=== PATIENT | female | born 1930 | race Caucasian/White ===

== ENCOUNTER 2017-01-24 09:07 | Observation (INO) | payer OTHER ==
[~2017-01-24] VITALS: Ht 162.6 cm; Wt 68.0 kg
--- NOTE | 2017-01-24 09:15 | NUR ---
86 YO FEMALE BIBA FROM [facility]. PT STATES SHE WAS CONSTIPATED FOR APPROX 4 DAYS AND HER LAST 2 BOWEL MOVMENTS HAVE BEEN "HARD ROUND BALLS" STATES SHE NOTICIED BRIGHT RED BLOOD IN TOILET AFTER BM'S. PT DENIES PAIN.
[2017-01-24 09:48] LABS: ABSOLUTE BASOPHIL COUNT 0 /CUMM (0.0-0.2); ABSOLUTE EOSINOPHIL COUNT 0.1 /CUMM (0.0-0.7); ABSOLUTE GRANULOCYTE CT 5.1 /CUMM (1.4-6.5); ABSOLUTE LYMPH COUNT 1.5 /CUMM (1.2-3.4); ABSOLUTE MONOCYTE COUNT 0.8 /CUMM (0.10-0.60); BASOPHIL % 0.6 % (0.0-2.0); EOSINOPHIL % 1.7 % (0-5); GRANULOCYTE % 67.1 % (42.2-75.2); HEMATOCRIT 42.2 % (37-47); MEAN CORPUSCULAR HGB 29.8 PG (27.0-31.0); MEAN CORPUSCULAR HGB CONC 32.8 G/DL (33.0-37.0); MEAN CORPUSCULAR VOLUME 90.9 FL (81.0-99.0); MEAN PLATELET VOLUME 8.4 FL (7.4-10.4); PLATELET COUNT 280 /CUMM (130-400); RBC DISTRIBUTION WIDTH 12.8 % (11.5-14.5); RED BLOOD CELL CT 4.65 /CUMM (4.20-5.40); WHITE BLOOD CELL COUNT 7.6 /CUMM (4.8-10.8)
--- NOTE | 2017-01-24 09:59 | NUR ---
MD TO BEDSIDE FOR EVAL
--- NOTE | 2017-01-24 10:15 | ED GI/GU/ABDOMINAL COMPLAINT ---
History of Present Illness General Chief Complaint: General Adult Stated Complaint: BRIGHT RED BLOOD X2 WITH BOWEL MOVEMENT Source: patient, old records, EMS Exam Limitations: no limitations Vital Signs & Intake/Output Vital Signs & Intake/Output Vital Signs Date Time Temp Pulse Resp B/P B/P Pulse O2 O2 Flow FiO2 Mean Ox Delivery Rate 01/25 2204 85 125/70 01/24 2200 98.4 85 18 125/70 97 Room Air 01/24 1943 94 145/90 01/24 1638 63 21 172/80 93 Room Air 01/24 1630 Room Air 01/24 1529 98.5 92 18 184/95 96 01/24 1231 98.6 76 18 180/78 98 Room Air 01/24 0913 96.9 89 18 179/98 95 Room Air ED Intake and Output 01/25 0000 01/24 1200 Intake Total 250 Output Total 100 Balance 150 Intake, Oral 250 Output, Urine 100 Patient 150 lb 145 lb Weight Weight Reported by Patient Measurement Method Allergies Coded Allergies: No Known Allergies (01/24/17) Reconcile Medications Acetaminophen (Pain Reliever) 500 MG CAPSULE 1 TAB PO Q6 PRN PAIN (Reported) Allopurinol 100 MG TABLET 1 TAB PO DAILY GOUT (Reported) Aspirin (Ecotrin*) 81 MG TABLET.DR 1 TAB PO DAILY HEART (Reported) Diltiazem HCl (Diltiazem 24HR ER) 240 MG CAP.ER.24H 1 CAP PO DAILY AFIB/ HYPERTENSION (Reported) Docusate Sodium (Colace) 100 MG CAPSULE 1 CAP PO BID CONSTIPATION (Reported) Escitalopram Oxalate (Lexapro) 5 MG TABLET 1 TAB PO DAILY DEPRESSION ( Reported) Furosemide 20 MG TABLET 1 TAB PO DAILY LOWER EXTREMITY SWELLING (Reported) Levothyroxine Sodium 100 MCG TABLET 1 TAB PO DAILY HYPOTHYROIDISM (Reported) Lisinopril 20 MG TABLET 1 TAB PO BID HYPERTENSION (Reported) Magnesium Hydroxide (Milk Of Magnesia) 400 MG/5 ML ORAL.SUSP 5 ML PO Q6 PRN CONSTIPATION (Reported) Metoprolol Succinate 25 MG TAB 1 TAB PO DAILY AFIB/HTN (Reported) Potassium Chloride (Klor-Con 10) 10 MEQ TABLET.ER 1 TAB PO DAILY HYPOKALEMIA (Reported) Tramadol HCl 50 MG TABLET 1 TAB PO TIDPRN PAIN (Reported) Warfarin Sodium (Coumadin) 2.5 MG TABLET 1 TAB PO DAILY AFIB (Reported) Triage Note: 86 YO FEMALE BIBA FROM [facility]. PT STATES SHE WAS CONSTIPATED FOR APPROX 4 DAYS AND HER LAST 2 BOWEL MOVMENTS HAVE BEEN "HARD ROUND BALLS" STATES SHE NOTICIED BRIGHT RED BLOOD IN TOILET AFTER BM'S. PT DENIES PAIN. Triage Nurses Notes Reviewed? yes ? n Is pt currently ? No HPI: Patient presents for evaluation of intermittent bright red rectal bleeding that began abruptly about 4 days ago. Patient states that her symptoms became worse today. She has had 2 bloody bowel movements today, her first episode being primarily reddish and pinkish blood. The second episode consisted of a formed bowel movement with red and pink blood (more blood than stool). Past History Travel History Traveled to [place] past 21 day No Medical History Any Pertinent Medical History? see below for history Cardiovascular: hypertension Musculoskeletal: ARTHIRITS Surgical History Surgical History: non-contributory Psychosocial History What is your primary language Malay Tobacco Use: Never used Family History Hx Contributory? No Review of Systems Review of Systems Constitutional: Reports: no symptoms. EENTM: Reports: no symptoms. Respiratory: Reports: no symptoms. Cardiovascular: Reports: no symptoms. GI: Reports: see HPI. Genitourinary: Reports: no symptoms. Musculoskeletal: Reports: no symptoms. Skin: Reports: no symptoms. Neurological/Psychological: Reports: no symptoms. Hematologic/Endocrine: Reports: no symptoms. Immunologic/Allergic: Reports: no symptoms. All Other Systems: Reviewed and Negative Physical Exam Physical Exam Gastrointestinal: SEE BELOW Comments: Gen.: Well-nourished, well-developed, no acute respiratory distress. Head: Normocephalic, atraumatic. Eyes: Normal inspection bilaterally Ears: Normal inspection bilaterally Nose: Normal inspection Throat/mouth : Moist mucosa Neck: Supple, full range of motion, no goiter Heart: Regular rate and rhythm, no murmurs rubs or gallops Lungs: Clear to auscultation bilaterally with normal air entry Chest: Nontender Back: Normal range of motion Abdomen: Soft, nontender, nondistended, normal bowel sounds Rectal: No active hemorrhoids or anal fissures, pinkish stool residue strongly heme positive Extremities: Normal range of motion grossly, equal radial pulses, no cyanosis clubbing or edema Neurologic: Cranial nerves grossly intact, speech is clear Skin: warm and dry with good color Psychiatric: Calm, cooperative, no apparent delusions or hallucinations Core Measures ACS in differential dx? No Severe Sepsis Present: No Septic Shock Present: No Progress Differential Diagnosis: lower gi bleed, uppper gi bleed, diverticular bleed, polyp, cancer, colitis Plan of Care: Orders Procedure Date/time Status PROTHROMBIN TIME 01/25 0600 Active CBC WITHOUT DIFFERENTIAL 01/25 0600 Active Clear Liquid Diet 01/24 D Active Vital Signs 01/24 1635 Active Teach/Educate 01/24 1635 Active Pain Treatment and Response 01/24 1635 Active Nutritional Intake, Monitor 01/24 1635 Active Isolation 01/24 1635 Active Intake & Output 01/24 1635 Active Patient Care Conference 01/24 1635 Active Activity/Ambulation 01/24 1635 Active Misc Message 01/[address] in observation 01/24 1504 Active URINALYSIS 01/24 1501 Active Pathway - chart 01/24 1451 Active House Staff 01/24 1451 Active Code Status 01/24 1451 Active Patient Data 01/24 1416 Active Intake & Output 01/24 1232 Active Saline Lock 01/24 1014 Active Add-on Test (ER Only) 01/24 1014 Active PROTHROMBIN TIME 01/24 0925 Complete TYPE & SCREEN (NOT X-MATCH) 01/24 0925 Complete COMPREHENSIVE METABOLIC PANEL 01/24 0916 Complete CBC WITHOUT DIFFERENTIAL 01/24 0916 Complete VTE Mechanical Prophylaxis 01/24 UNK Active MISSING MEDICATION FORM 01/24 UNK Active Current Medications Sig/Tatyana Start time Last Medication Dose Stop Time Status Admin Allopurinol 100 MG DAILY 01/25 1000 CAN (Zyloprim) Levothyroxine Sodium 0.1 MG DAILY AC 01/25 0700 AC 01/25 (Synthroid) 0715 Docusate Sodium 100 MG BID 01/24 2200 AC (Colace) Lisinopril 20 MG BID 01/24 2200 AC 01/24 (Prinivil) 2204 Acetaminophen 500 MG Q6P PRN 01/24 1700 AC 01/25 (Tylenol) 0716 Magnesium Hydroxide 5 ML Q6 PRN 01/24 1700 AC (Milk Of Magnesia) Tramadol HCl 50 MG TIDPRN PRN 01/24 1700 AC 01/25 (Ultram) 0024 Allopurinol 100 MG DAILY 01/24 1649 AC 01/24 (Zyloprim) 1943 Metoprolol Succinate 25 MG DAILY 01/25 1648 AC 01/24 (Toprol XL) 1942 Potassium Chloride 10 MEQ DAILY 01/25 1648 AC 01/24 (K-Dur) 1942 Aspirin Buffered 81 MG DAILY 01/24 1647 AC 01/24 (Ecotrin) 1942 Diltiazem HCl 240 MG DAILY 01/24 1647 AC 01/24 (Cardizem CD) 1941 Escitalopram Oxalate 5 MG DAILY 01/24 1647 AC 01/24 (Lexapro) 1942 Furosemide 20 MG DAILY 01/24 1647 AC 01/24 (Lasix) 183 Acetaminophen 500 MG Q6P PRN 01/24 163 CAN (Tylenol) Laboratory Tests 01/24/17 0925: Anion Gap 12, Estimated GFR > 60, BUN/Creatinine Ratio 21.7, Glucose 94, Calcium 9.3, Total Bilirubin 0.8, AST 26, ALT 34, Alkaline Phosphatase 109, Total Protein 6.6, Albumin 4.0, Globulin 2.6, Albumin/Globulin Ratio 1.5, PT 27.1 H, INR 2.61 H, CBC w Diff NO MAN DIFF REQ, RBC 4.65, MCV 90.9, MCH 29.8, RDW 12.8, MPV 8.4, Gran % 67.1, Lymphocytes % 19.6 L, Monocytes % 11.0 H, Eosinophils % 1.7, Basophils % 0.6, Absolute Granulocytes 5.1, Absolute Lymphocytes 1.5, Absolute Monocytes 0.8 H, Absolute Eosinophils 0.1, Absolute Basophils 0, PUBS MCHC 32.8 L Initial ED EKG: none Comments: 01/24/2017 1:02:20 PM I have updated Jaqui on her test results. She has no specific complaint at this time. She has had no further episodes of rectal bleeding here in the emergency department. GI paged. 01/24/2017 1:14:38 PM patient's case discussed with Dr. Zamudio including her current clinical condition and labs and CAT scan report. Although the patient's hematocrit and hemoglobin and vital signs are stable, the patient is likely still actively bleeding particularly given her use of warfarin. In addition the patient does not have an active primary care physician at this time having moved [facility] 4 months ago. He feels that the patient should be considered for an observation stay to assess for stability and for any change in hematocrit and hemoglobin or vital signs. He also recommends discontinuing the warfarin and considering vitamin K reversal. He feels the patient will require a colonoscopy when properly prepped. 01/24/2017 2:19:01 PM patient's case discussed with Dr. Orozco. Departure Departure Disposition: STILL A PATIENT Condition: Stable Clinical Impression Primary Impression: Lower GI bleed Secondary Impressions: Warfarin-induced coagulopathy Referrals: WILLIAM SALAS,LUIS Sapp (PCP/Family) Departure Forms: Customer Survey General Discharge Information Observation Note Spoke With: ADITI AMEZQUITA MD Physician Advisor Notified: BRADFORD SALAS,MARISABEL [address] Patient In: Non-ED OBS Care Area Rationale for Observation: My rational for observation is as follows patient is a poor historian secondary to poor memory. She is also anticoagulated placing her at high risk of ongoing bleeding. The source of this patient's bleeding is unclear at this point although clinically it points to a lower GI bleeding episode. This could be secondary to a bleeding polyp, colon cancer or an AV malformation. Her anticoagulation places her at high risk of hemorrhage, a precipitous drop in H&H , chest pain, shortness of breath and fatal hemorrhage. Given her poor memory, her age, elevated INR and clinical presentation I do not feel she is a good candidate for outpatient management. I feel she now requires hospitalization for serial blood counts, discontinuation of her warfarin and monitoring of her INR and GI consultation. If hematocrit and hemoglobin drop then urgent or emergent colonoscopy should be considered along with rapid reversal of this patient's warfarin with vitamin K and fresh frozen plasma.
--- NOTE | 2017-01-24 11:02 | NUR ---
PT AMBULTING TO BATHROOM WITH WALKER. PT REQUESTING SOMETHING TO EAT, PT AWRE SHE IS GOING FOR A CT SCAN AND NEEDS TO WAIT UNTIL RESTULS ARE BACK UNTIL SHE CAN EAT.
[2017-01-24 11:03] LABS: PT 27.1 SEC (9.4-12.5)
--- NOTE | 2017-01-24 11:21 | NUR ---
PT TO CAT.
--- NOTE | 2017-01-24 11:40 | NUR ---
PT BACK FROM CT SCAN. SITTING ON STRETCHER TALKING WITH FAMILY ON THE PHONE AT THIS TIME. PT REMAINS PAIN FREE.
--- NOTE | 2017-01-24 12:14 | CT SCAN REPORT ---
EXAMINATION: CT ABDOMEN AND PELVIS WITH CONTRAST CLINICAL INFORMATION: Bloody diarrhea. COMPARISON: None TECHNIQUE: Multidetector volumetric imaging was performed of the abdomen and pelvis before and after the IV administration of 95 mL of of Optiray 320 intravenous contrast. Sagittal and coronal reformatted images were obtained on the technologist's workstation. DLP: 326 mGy-cm FINDINGS: LUNG BASES: Mild atelectasis in dependent aspect of each lower lobe, there are lobe and inferior lingula. 0.3 cm calcified nodule within the right lower lobe. Mitral valve annulus is calcified and there is multichamber cardiac enlargement. Coronary arteries are calcified. Pulmonary artery trunk is 4 cm diameter; this pulmonary artery enlargement suggests presence of pulmonary arterial hypertension. LIVER, GALLBLADDER, AND BILIARY TREE: A 3 x 2.2 x 2.6 cm smoothly marginated mass along the capsular surface of hepatic segment IVb has attenuation of 65 Hounsfield units on these contrast-enhanced images. Gallbladder is moderately distended and has normal wall thickness. No radiopaque calculi. No intrahepatic or extrahepatic bile duct dilatation. PANCREAS: Unremarkable. SPLEEN: Unremarkable. ADRENAL GLANDS: Unremarkable. KIDNEYS AND URETERS: The kidneys enhance symmetrically. No nephrolithiasis or hydroureteronephrosis. Multiple bilateral renal cortical cysts are present. A 1.5 x 1.2 cm exophytic lesion at the posterior left upper pole has minimal calcification along its posterior wall and has central attenuation of 25-30 HU; this likely represents a hyperdense cyst. A prominent peripelvic cyst of the upper pole measures up to 4.9 cm maximum dimension. There are several small bilateral hypodense cortical lesions that are too small to definitively characterize (but are likely cysts). The ureters are normal in caliber. BLADDER: Unremarkable. GASTROINTESTINAL TRACT: Stomach is underdistended. Small and large bowel are normal in caliber. The appendix is normal. There is pancolonic diverticulosis. The wall thickening of the sigmoid colon is likely secondary to chronic diverticular disease. There is no overt pericolonic fat stranding to suggest acute diverticulitis. No abdominal abscess. No pneumoperitoneum. ABDOMINAL WALL: The rectus abdominis muscles of the anterior abdominal wall are atrophied. There is mild protrusion of fat into each inguinal canal. No acute findings within the abdominal wall. LYMPH NODES: No pathologic sized lymph nodes within the abdomen or pelvis. VASCULAR: There is extensive atherosclerotic calcification of the aorta and iliac vessels without aneurysm. PELVIC VISCERA: The uterus is surgically absent. No adnexal masses or pelvic free fluid. OSSEOUS STRUCTURES: There is extensive, severe degenerative arthropathy of the thoracolumbar spine and rotatory dextroscoliosis of the lumbar spine. The compressed T11 vertebral body exhibits approximately 50% central height reduction and there is generalized sclerosis of the deformed vertebra. A subacute fracture of T11 is suspected, but there are no comparison radiographs or CT exams to determine chronicity. There is 0.8 cm of grade 2 anterolisthesis of L4 on L5. Tarlov cyst is present at the S2 level. Mild osteoarthrosis of the hips. IMPRESSION: 1. Pancolonic diverticulosis and diverticular disease of the sigmoid colon. There is no overt diverticulitis. 2. 3 x 2.2 x 2.6 cm mass along the capsular surface of hepatic segment 4B. This could be further assessed with ultrasound to confirm presence of a solid lesion. Then, if deemed clinically appropriate, a multiphase contrast-enhanced CT or MR examination of the liver could be performed. 3. Multiple bilateral renal cysts, including a prominent peripelvic cyst in the left upper pole. Some of the hypodense renal cortical lesions are too small to characterize but are likely cysts. 4. Extensive atherosclerotic disease of the aorta and iliac vessels without aneurysm. Cardiomegaly and coronary artery atherosclerotic disease, as well. Pulmonary artery trunk is 4 cm diameter, suggestive of pulmonary arterial hypertension. 5. The T11 vertebral body compression fracture is probably subacute.
--- NOTE | 2017-01-24 12:17 | NUR ---
PT AMBULATING TO AND FROM BATHROOM WITH WALKER. PT AWARE STILL WAITING ON RESULTS AT THIS TIME. OFFERS NO COMPLAINTS
--- NOTE | 2017-01-24 13:10 | NUR ---
MD TO BEDSIDE TO EXPLAIN RESULTS AND PLAN OF CARE
--- NOTE | 2017-01-24 15:15 | NUR ---
HOUSE STAFF AT BEDSIDE
--- NOTE | 2017-01-24 15:30 | History & Physical ---
AIMEE BACA MD 01/24/17 1530: General Information and HPI History of Present Illness: 86 year old woman with multiple medical problems significant for atrial fibrillation on coumadin seen for evaluation of multiple episodes of bright red stool at home and urinary frequency/urgency/incontinence. Patient was in her normal state of health until three days ago when she developed severe constipation with associated urinary frequency/incontinence without any burning/pain/discomfort. She denies a history of incontinence. In this time she has had decreased oral intake. She reports passing multiple bowel movements consisting of small hard stools and associated bright red blood. When he symptoms weren't resolving she decided to call 911 to seek further evaluation. She reports a similar episode to this approximately 8 years ago and does not recall the details of this event. Presently she states that she "feels fine" and denies any further episodes of bright red blood per rectum. She does admit to persistent urinary incontinence as reports having an episode in the ED "all over the floor". She is demanding to eat and states she has not "eaten in days". Patient is originally from [place], [place] and moved to [facility] in order to be closer to her children. She states it was too hard for them to keep flying down to [place] because she kept getting sick. She provided contact information for her son and [id number] , home , whom offered collateral information for patient and state patient sees Dr. Thomas as a PCP and lives at [facility] assisted living where most of her ADLS/IADLS are done with aid of staff. Collateral information was unavailable from [facility] , no W10 was available. She denies any blurred/double vision, lightheadedness/dizziness, headache, fever , chills, chest pain, palpitations, shortness of breath, cough, nausea, vomiting , diarrhea, numbness/tingling. PMHx - hypertension, hyperlipidemia, hypothyroidism, gout, paroxysmal atrial fibrillation on coumadin, DJD, depression, osteoarthritis Social History - denies tobacco use, drinks 1-2 drinks per day of wine or cosmos , unable to complete ADLs/IADLs independent, utilizing a rolling walker for ambulation Allergies/Medications Allergies: Coded Allergies: No Known Allergies (01/24/17) Past History Travel History Traveled to [place] past 21 day No Medical History EENT: NONE Cardiovascular: AFIB, chronic venous insuff, hypertension, hyperlipidemia Respiratory: NONE Gastrointestinal: lower GI bleed Hepatic: NONE Renal: NONE Musculoskeletal: degen joint disease, falls, gout, osteoarthritis Psychiatric: depression Endocrine: hypothyroidism Surgical History Surgical History: unobtainable Past Family/Social History Family History Relations & Conditions if any FATHER, , Age 50-60; Cause: Colon cancer. FH: colon cancer Psychosocial History Where do you live? Assisted Living Who Do You Live With? self Services at Home: Home Health Aide, Nursing Primary Language: Serbian Smoking Status: Never Smoked ETOH Use: heavy use Illicit Drug Use: denies illicit drug use Functional Ability ADLs Needs Assist: dressing, eating, toileting, bathing. Ambulation: walker IADLs Independent: telephone. Needs Assist: shopping, housework, finances, food prep, transportation, medication admin. Review of Systems Review of Systems Constitutional: Reports: see HPI. Exam & Diagnostic Data Last 24 Hrs of Vital Signs/I&O Vital Signs Date Time Temp Pulse Resp B/P B/P Pulse O2 O2 Flow FiO2 Mean Ox Delivery Rate 01/24 1638 63 21 172/80 93 Room Air 01/24 1630 Room Air 01/24 1529 98.5 92 18 184/95 96 01/24 1231 98.6 76 18 180/78 98 Room Air 01/24 0913 96.9 89 18 179/98 95 Room Air Intake & Output 01/24 1600 01/24 0800 01/24 0000 Intake Total Output Total Balance Patient 65.771 kg Weight Weight Reported by Patient Measurement Method Physical Exam General Appearance Alert, Cooperative, No Acute Distress Skin No Rashes, No Breakdown, No Significant Lesion HEENT Atraumatic, EOMI, Mucous Membr. moist/pink Neck Supple Cardiovascular Normal S1, Normal S2, No Murmurs Lungs Clear to Auscultation, Normal Air Movement Abdomen Normal Bowel Sounds, Soft, No Tenderness, No Hepatospenomegaly, No Masses Neurological Normal Speech, Normal Tone, Sensation Intact, Cranial Nerves 3-12 NL Extremities No Clubbing, No Cyanosis, No Edema, Normal Pulses, mild bilateral lower extremity tenderness, 1+ nonpitting edema Vascular Normal Pulses, Pulses Symmetrical Rectal Brown, bloody grossly guaic positive stools Last 24 Hrs of Labs/Garrick: Laboratory Tests 01/24/17 0925: Anion Gap 12, Estimated GFR > 60, BUN/Creatinine Ratio 21.7, Glucose 94, Calcium 9.3, Total Bilirubin 0.8, AST 26, ALT 34, Alkaline Phosphatase 109, Total Protein 6.6, Albumin 4.0, Globulin 2.6, Albumin/Globulin Ratio 1.5, PT 27.1 H, INR 2.61 H, CBC w Diff NO MAN DIFF REQ, RBC 4.65, MCV 90.9, MCH 29.8, RDW 12.8, MPV 8.4, Gran % 67.1, Lymphocytes % 19.6 L, Monocytes % 11.0 H, Eosinophils % 1.7, Basophils % 0.6, Absolute Granulocytes 5.1, Absolute Lymphocytes 1.5, Absolute Monocytes 0.8 H, Absolute Eosinophils 0.1, Absolute Basophils 0, PUBS MCHC 32.8 L Diagnostic Data Other Results EXAM TYPE: CAT - CT ABD & PELVIS W IV CONTRAST IMPRESSION: 1. Pancolonic diverticulosis and diverticular disease of the sigmoid colon. There is no overt diverticulitis. 2. 3 x 2.2 x 2.6 cm mass along the capsular surface of hepatic segment 4B. This could be further assessed with ultrasound to confirm presence of a solid lesion. Then, if deemed clinically appropriate, a multiphase contrast-enhanced CT or MR examination of the liver could be performed. 3. Multiple bilateral renal cysts, including a prominent peripelvic cyst in the left upper pole. Some of the hypodense renal cortical lesions are too small to characterize but are likely cysts. 4. Extensive atherosclerotic disease of the aorta and iliac vessels without aneurysm. Cardiomegaly and coronary artery atherosclerotic disease, as well. Pulmonary artery trunk is 4 cm diameter, suggestive of pulmonary arterial hypertension. 5. The T11 vertebral body compression fracture is probably subacute. Assessment/Plan Assessment: 86 year old woman with multiple medical problems significant for atrial fibrillation on coumadin seen for evaluation of constipation with associated straining causing multiple small volume bowel movents of hard stool and associated bright red blood with urinary frequency, urgency, and incontinence. Patient reports otherwise feeling fine and denies any fever, chills. Vital signs demonstrate hypertension, most likely secondary to her missing her morning medications. Physical examination demonstrates a plesant elderly woman in no acute distress with grossly bloody stools. Hemoglobin/hematocrit remain stable. Urinalysis not sent due to incontinence. CT abdomen/pelvis identified no acute findings, but commented on multiple suspicious findings that require further investigation as an outpatient. Patient is to be placed under observation on general medicine while pending GI evaluation. Bright Red Blood Per Rectum / History of P. Atrial Fibrillation Patient with history of atrial fibrillation on coumadin and therapeutic INR seen for evaluation of constipation with repeat straining causing multiple bowel movements and associated bright right blood per rectum. She reports a similar episode approximately 8 years ago, but does not recall the details. 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 CT Abdomen/pelvis demonstrated diverticulosis, a mass along the capsular surface of the liver, multiple bilateral renal cysts. -General Medicine observaiton -Hold Coumadin, reverse INR if necessary -Type & Cross -Monitor for hemodynamic instability -CBC Q12, tranfused hemoglobin to > 8.0 -GI consult -Outpatient evaluation of hepatic mass Hypertension -Diltiazem CD 240mg PO Daily -Lisinopril 20mg PO BID -Metoprolol Succinate 25mg PO daily Constipation -Colace 100mg PO BID -Milk of Magnesia PRN Coronary Artery Disease-Aspirin 81mg PO Daily Hypothyroidism-Synthroid 100mcg PO Daily Depression-Lexapro 5mg PO daily Gout- Allopurinol 100mg PO Daily Chronic Lower extremity swelling- Furosemide 20mg PO Daily Pain Plan- Acetaminophen/Tramadol Diet- Clear Liquid Diet DVT PPx- ALPS Code Status - FULL CODE As Ranked By This Provider Problem List: 1. Lower GI bleed Core Measures/Miscellaneous Acute Coronary Syndrome ACS Diagnosis: No Cerebrovascular Accident CVA/TIA Diagnosis: No Congestive Heart Failure CHF Diagnosis: No Venous Thromboembolism VTE Risk Factors: Age > 40 [facility] prophylaxis d/t: No contraindications No VTE Pharm Prophylaxis d/t: Active bleeding VTE Diagnosis: No VTE Type: NONE VTE Confirmed by (Test): NONE Severe Sepsis Severe Sepsis Present: No Septic Shock Septic Shock Present: No Miscellaneous Documentation Attending Case Discussed With: ADITI AMEZQUITA MD Primary Care Physician: LUIS THOMAS MD Patient sees these Specialists None Level of Patient Care: General Medicine ADITI AMEZQUITA 02/05/17 1551: General Information and HPI Allergies/Medications Home Med list Acetaminophen (Pain Reliever) 500 MG CAPSULE 1 TAB PO Q6 PRN PAIN (Reported) Allopurinol 100 MG TABLET 1 TAB PO DAILY GOUT (Reported) Aspirin (Ecotrin*) 81 MG TABLET.DR 1 TAB PO DAILY HEART (Reported) Diltiazem HCl (Diltiazem 24HR ER) 240 MG CAP.ER.24H 1 CAP PO DAILY AFIB/ HYPERTENSION (Reported) Docusate Sodium (Colace) 100 MG CAPSULE 1 CAP PO BID CONSTIPATION (Reported) Escitalopram Oxalate (Lexapro) 5 MG TABLET 1 TAB PO DAILY DEPRESSION ( Reported) Furosemide 20 MG TABLET 1 TAB PO DAILY LOWER EXTREMITY SWELLING (Reported) Levothyroxine Sodium 100 MCG TABLET 1 TAB PO DAILY AC THYROID (Reported) Lisinopril 20 MG TABLET 1 TAB PO BID HYPERTENSION (Reported) Metoprolol Succinate 25 MG TAB 1 TAB PO DAILY AFIB/HTN (Reported) Polyethylene Glycol 3350 (Miralax) 17 GRAM POWD.PACK 1 PAC PO DAILY CONSTIPATION dissolve in water Potassium Chloride (Klor-Con M20) 20 MEQ TAB.ER.PRT 1 TAB PO DAILY HYPOKALEMIA (Reported) Sennosides/Docusate Sodium (Senokot-S Tablet) 8.6 MG-50 MG TABLET 1 TAB PO BID CONSTIPATION Tramadol HCl 50 MG TABLET 1 TAB PO TIDPRN PAIN (Reported) Warfarin Sodium (Coumadin) 2.5 MG TABLET 1 TAB PO DAILY AFIB (Reported) Attending MD Review Statement Attending Statement Attending MD Statement: examined this patient, discuss w/resident/PA/CUSTOMS HOUSE BROKER, agreed w/resident/PA/CUSTOMS HOUSE BROKER, reviewed EMR data (avail), discussed with nursing Attending Assessment/Plan: please see my separate attending note for more details
--- NOTE | 2017-01-24 15:32 | NUR ---
ORDERED CLEAR LIQUID TRAY FOR PT AT THIS TIME
--- NOTE | 2017-01-24 16:01 | NUR ---
PT UPSET SHE IS GETTING CLEAR LIQUID TRAY. PT DEMANDING TO GO HOME IF SHE IS NOT FED WITH "REAL FOOD" PT AWARE HOUSESTAFF IS WAITING TO HEAR BACK FROM GI TO SEE IF PT CAN EAT SOLID FOOD.
--- NOTE | 2017-01-24 16:12 | NUR ---
216-2 REPORT GIVEN TO FLOOR DISTRIBUTION CALLED
[2017-01-24 16:38] VITALS: BP 172/80
[2017-01-24] MEDS ORDERED: ALLOPURINOL100 M1 PO (16:38)
[2017-01-24] MEDS ORDERED: PAIN RELIEVER500 MG PO (16:38)
[2017-01-24] MEDS ORDERED: ASPIRIN EC81 M1 PO (16:39)
[2017-01-24] MEDS ORDERED: COLACE100 M1 PO (16:39)
[2017-01-24] MEDS ORDERED: DILTIAZEM 24HR240 MG PO (16:40)
[2017-01-24] MEDS ORDERED: KLOR-CON M2020 ME1 PO (16:41)
[2017-01-24] MEDS ORDERED: LEVOTHYROXINE100 MC1 PO (16:41)
[2017-01-24] MEDS ORDERED: FUROSEMIDE20 M1 PO (16:41)
[2017-01-24] MEDS ORDERED: LEXAPRO5 M1 PO (16:41)
[2017-01-24] MEDS ORDERED: METOPROLOL SUCC25 M1 PO (16:43)
[2017-01-24] MEDS ORDERED: LISINOPRIL20 M1 PO (16:43)
[2017-01-24] MEDS ORDERED: MILK OF MA400 MG/52 PO (16:44)
[2017-01-24] MEDS ORDERED: COUMADIN2.5 M1 PO (16:46)
[2017-01-24] MEDS ORDERED: TRAMADOL HCL50 M1 PO (16:46)
--- NOTE | 2017-01-24 17:27 | PN- Att Addend ---
Attending MD Review Statement Attending Statement Attending MD Statement: examined this patient, discuss w/resident/PA/BEVELLER OPERATOR, agreed w/resident/PA/BEVELLER OPERATOR, discussed with family, reviewed EMR data (avail), discussed w/ nursing Attending Assessment/Plan: Laboratory Tests 01/24/17 0925: Anion Gap 12, Estimated GFR > 60, BUN/Creatinine Ratio 21.7, Glucose 94, Calcium 9.3, Total Bilirubin 0.8, AST 26, ALT 34, Alkaline Phosphatase 109, Total Protein 6.6, Albumin 4.0, Globulin 2.6, Albumin/Globulin Ratio 1.5, PT 27.1 H, INR 2.61 H, CBC w Diff NO MAN DIFF REQ, RBC 4.65, MCV 90.9, MCH 29.8, RDW 12.8, MPV 8.4, Gran % 67.1, Lymphocytes % 19.6 L, Monocytes % 11.0 H, Eosinophils % 1.7, Basophils % 0.6, Absolute Granulocytes 5.1, Absolute Lymphocytes 1.5, Absolute Monocytes 0.8 H, Absolute Eosinophils 0.1, Absolute Basophils 0, PUBS MCHC 32.8 L Vital Signs Date Time Temp Pulse Resp B/P B/P Pulse O2 O2 Flow FiO2 Mean Ox Delivery Rate 01/24 1638 63 21 172/80 93 Room Air 01/24 1630 Room Air 01/24 1529 98.5 92 18 184/95 96 01/24 1231 98.6 76 18 180/78 98 Room Air 01/24 0913 96.9 89 18 179/98 95 Room Air Patient seen and examined at bedside. Discussed with patient the care plan. 86 -year-old female with past medical history of atrial fibrillation on Coumadin, hypertension, gout, osteoarthritis, hyperlipidemia who presented to the ER with chief complaint of bright red blood per rectum going on for last 3-4 days. The episodes happened secondary to patient's straining due to her constipation. She had 2 episodes of those yesterday. Patient had a similar episode about one year ago while she was in [place]. Patient recently moved to [place] in September. Patient will be placed in observation status for monitoring her hemoglobin and will be put on clear liquid diet. Her lower GI bleeding could be secondary to internal hemorrhoids as it was pain less versus angiodysplasia or diverticular bleed. If her hemoglobin is stable tomorrow we will plan to discharge her home with outpatient gastroenterology follow-up. Gastroenterology has been consulted and they will see the patient tomorrow morning. CT scan of the abdomen showed 3 in 2 to into 2 cm smooth mass in the hepatic segment for which we will discuss with GI and will decide on further workup based on the recommendation.
[2017-01-24 22:00] VITALS: BP 125/70
--- NOTE | 2017-01-24 22:38 | NUR ---
1630 PATIENT ARRIVED TO FLOOR ALERT AND ORIENTED X 3. DENIES CHEST PAIN. + PULSES. ON ROOM AIR. STEADY GAIT WITH ROLLING WALKER. SKIN C/D/I. BED LOW AND LOCKED. CALL LIGHT WITHIN REACH MEDICATION GIVEN FOR PAIN. PATIENT RESTING AT THIS TIME. WILL CONTINUE TO MONITOR
[2017-01-25 07:46] VITALS: BP 164/100
--- NOTE | 2017-01-25 08:16 | PN- Housestaff ---
AIMEE BACA MD 01/25/17 0816: Subjective Follow-up For: BRBPR Constipation Subjective: Patient seen and examined. She is seen sitting upright in her chair at bedside resting comfortably. She appears to be in no acute distress. She reports sleeping well and denies any further episodes of bright red blood per rectum. She states that she "feels well" and is requesting to have "some real food". Additionally she denies any headache, fever, chills, chest pain, shortness of breath, nausea, vomiting, diarrhea. No overnight events reported. Review of Systems Constitutional: Reports: see HPI. Objective Last 24 Hrs of Vital Signs/I&O Vital Signs Date Time Temp Pulse Resp B/P B/P Pulse O2 O2 Flow FiO2 Mean Ox Delivery Rate 01/25 1108 83 164/100 01/25 1105 83 164/100 01/25 0746 97.7 83 20 164/100 97 Room Air 01/24 2204 85 125/70 01/24 2200 98.4 85 18 125/70 97 Room Air 01/24 1943 94 145/90 01/24 1638 63 21 172/80 93 Room Air 01/24 1630 Room Air 01/24 1529 98.5 92 18 184/95 96 01/24 1231 98.6 76 18 180/78 98 Room Air Intake & Output 01/25 1600 01/25 0800 01/25 0000 Intake Total 260 250 Output Total 100 Balance 260 150 Intake, IV 20 Intake, Oral 240 250 Output, Urine 100 Patient 68.039 kg Weight Physical Exam General Appearance: Alert, Cooperative, No Acute Distress Other Physical Findings: General - well developed, well nourished elderly woman in no acute distress HEENT - NCAT, PERRL, EOMI CVS - S1, S2 w/o m/g/r Resp - CTA bilaterally GI - soft, nontender, nondistended, bowel sounds intact Neuro - Awake and alert, CN II - XII grossly intact Ext - normal pulses, no cyanosis/clubbing, 1+ bilateral nonpitting edema Current Medications: Current Medications Sig/Tatyana Start time Last Medication Dose Route Stop Time Status Admin Acetaminophen 650 MG .STK-MED ONE 01/24 1838 DC PO 01/24 183 Acetaminophen 500 MG Q6P PRN 01/24 1700 AC 01/25 PO 0716 Acetaminophen 500 MG Q6P PRN 01/24 1630 CAN PO Allopurinol 100 MG DAILY 01/25 1000 CAN PO Allopurinol 100 MG DAILY 01/24 1649 AC 01/25 PO 1107 Aspirin Buffered 81 MG DAILY 01/24 1647 AC 01/25 PO 1107 Diltiazem HCl 240 MG DAILY 01/24 1647 AC 01/25 PO 1106 Docusate Sodium 100 MG BID 01/24 2200 AC 01/25 PO 1105 Escitalopram Oxalate 5 MG DAILY 01/24 1647 AC 01/25 PO 1107 Furosemide 20 MG DAILY 01/24 1647 AC 01/25 PO 1105 Levothyroxine Sodium 0.1 MG DAILY AC 01/25 0700 AC 01/25 PO 0715 Levothyroxine Sodium 0.1 MG DAILY AC 01/24 1648 DC 01/24 PO 1943 Lisinopril 20 MG BID 01/24 2200 01/25 PO 1105 Magnesium Hydroxide 5 ML Q6 PRN 01/24 1700 AC PO Metoprolol Succinate 25 MG DAILY 01/24 1648 AC 01/25 PO 1108 Patient Medication 1 UNIT ONE NR 01/24 1730 MS Teaching ED 01/24 1800 Patient Medication 1 UNIT ONE NR 01/24 1730 MS Teaching ED 01/24 1800 Patient Medication 1 UNIT ONE NR 01/24 1730 [facility] ED 01/24 1800 Patient Medication 1 UNIT ONE NR 01/24 1730 [facility] ED 01/24 1800 Potassium Chloride 10 MEQ DAILY 01/24 1648 01/24 PO 1943 Tramadol HCl 50 MG TIDPRN PRN 01/24 1700 01/25 PO 0024 Last 24 Hrs of Lab/Garrick Results Last 24 Hrs of Labs/Mics: Laboratory Tests 01/25/17 0705: PT 25.2 H, INR 2.42 H, CBC w Diff NO MAN DIFF REQ, RBC 4.34, MCV 90.5, MCH 30.0, RDW 13.1, MPV 8.7, Gran % 62.1, Lymphocytes % 22.1, Monocytes % 13.1 H, Eosinophils % 2.1, Basophils % 0.6, Absolute Granulocytes 4.3, Absolute Lymphocytes 1.5, Absolute Monocytes 0.9 H, Absolute Eosinophils 0.1, Absolute Basophils 0, PUBS MCHC 33.2 Assessment/Plan Assessment: 86 year old woman with multiple medical problems significant for atrial fibrillation on coumadin seen for evaluation of constipation with associated straining causing multiple small volume bowel movents of hard stool and associated bright red blood with urinary frequency, urgency, and incontinence. Patient reports otherwise feeling fine and denies any fever, chills. Vital signs demonstrate hypertension, most likely secondary to her missing her morning medications. Physical examination demonstrates a plesant elderly woman in no acute distress with grossly bloody stools. Hemoglobin/hematocrit remain stable. Urinalysis not sent due to incontinence. CT abdomen/pelvis identified no acute findings, but commented on multiple suspicious findings that require further investigation as an outpatient. Patient is to be placed under observation on general medicine while pending GI evaluation. Hospital Day 2 Patient was continued on a clear liquid diet over night and denies any further episodes of bright red blood per rectum. She was seen and evaluated by gastroenterology banking consultant Dr. Hansel Zamudio whom commented that patient was guaic negative. He stated that patient should be continued on medications to help prevent constipation, and may be continued on Coumadin. She was instructed to take Senna and Miralax and to follow up with Dr. Zamudio in two weeks for evaluation of her constipation and evaluation of the hepatic mass demonstrated on CT Imaging. Bright Red Blood Per Rectum / History of P. Atrial Fibrillation Patient with history of atrial fibrillation on coumadin and therapeutic INR seen for evaluation of constipation with repeat straining causing multiple bowel movements and associated bright right blood per rectum. She reports a similar episode approximately 8 years ago, but does not recall the details. 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 CT Abdomen/pelvis demonstrated diverticulosis, a mass along the capsular surface of the liver, multiple bilateral renal cysts. -General Medicine observaiton -Hold Coumadin, reverse INR if necessary -Type & Cross -Monitor for hemodynamic instability -CBC Q12, tranfused hemoglobin to > 8.0 -GI consult -Outpatient evaluation of hepatic mass Hypertension -Diltiazem CD 240mg PO Daily -Lisinopril 20mg PO BID -Metoprolol Succinate 25mg PO daily Constipation -Colace 100mg PO BID -Milk of Magnesia PRN Coronary Artery Disease-Aspirin 81mg PO Daily Hypothyroidism-Synthroid 100mcg PO Daily Depression-Lexapro 5mg PO daily Gout- Allopurinol 100mg PO Daily Chronic Lower extremity swelling- Furosemide 20mg PO Daily Pain Plan- Acetaminophen/Tramadol Diet- Regular Diet DVT PPx- ALPS Code Status - FULL CODE Problem List: 1. Lower GI bleed Pain Ratin Pain Location: None Pain Goal: Remain pain free Pain Plan: See assessment Tomorrow's Labs & Rationales: None AMEZQUITATOMASA BAEZATRAY 01/25/17 1727: Attending MD Review Statement Attending Statement Attending MD Statement: examined this patient, discuss w/resident/PA/RECEIVER SETTER, agreed w/resident/PA/RECEIVER SETTER, reviewed EMR data (avail), discussed with nursing, discussed with case mgmt Attending Assessment/Plan: Agree with the assessment plan of the resident. Discussed with patient the care plan. Patient is being discharged home in stable condition. Patient will follow-up with gastroenterology as an outpatient for the hepatic lesion as well as workup for her bleeding.
[2017-01-25 09:04] LABS: PT 25.2 SEC (9.4-12.5)
[2017-01-25 09:19] LABS: ABSOLUTE BASOPHIL COUNT 0 /CUMM (0.0-0.2); ABSOLUTE EOSINOPHIL COUNT 0.1 /CUMM (0.0-0.7); ABSOLUTE GRANULOCYTE CT 4.3 /CUMM (1.4-6.5); ABSOLUTE LYMPH COUNT 1.5 /CUMM (1.2-3.4); ABSOLUTE MONOCYTE COUNT 0.9 /CUMM (0.10-0.60); BASOPHIL % 0.6 % (0.0-2.0); EOSINOPHIL % 2.1 % (0-5); GRANULOCYTE % 62.1 % (42.2-75.2); HEMATOCRIT 39.2 % (37-47); MEAN CORPUSCULAR HGB CONC 33.2 G/DL (33.0-37.0); MEAN CORPUSCULAR VOLUME 90.5 FL (81.0-99.0); MEAN PLATELET VOLUME 8.7 FL (7.4-10.4); PLATELET COUNT 264 /CUMM (130-400); RBC DISTRIBUTION WIDTH 13.1 % (11.5-14.5); RED BLOOD CELL CT 4.34 /CUMM (4.20-5.40); WHITE BLOOD CELL COUNT 6.9 /CUMM (4.8-10.8)
[2017-01-25] MEDS ORDERED: SENOKOT-S TABL1 EACH PO (10:12)
[2017-01-25] MEDS ORDERED: MIRALAX17 G1 PO (10:13)
--- NOTE | 2017-01-25 10:24 | Patient Discharge Instructions ---
Discharge Instructions General Discharge Information Special Instructions: Call and schedule an appointment with Dr. Zamudio within two weeks for a follow up appointment. Take Senna and miralax as directed. Call 911 or return to the ED should you develop a large amount of bleeding. Continue all your previous medications at their previous doses, including Coumadin. Acute Coronary Syndrome Inclusion Criteria At DC or during hospital stay patient has or had the following: ACS DIAGNOSIS No Discharge Core Measures Meds if any: Prescribed or Continued at Discharge Meds if any: NOT Prescribed or Continued at Discharge Congestive Heart Failure Inclusion Criteria At DC or during hospital stay patient has or had the following: CHF DIAGNOSIS No Discharge Core Measures Meds if any: Prescribed or Continued at Discharge Meds if any: NOT Prescribed or Continued at Discharge Cerebrovascular accident Inclusion Criteria At DC or during hospital stay patient has or had the following: CVA/TIA Diagnosis No Discharge Core Measures Meds if any: Prescribed or Continued at Discharge Meds if any: NOT Prescribed or Continued at Discharge Venous thromboembolism Inclusion Criteria VTE Diagnosis No VTE Type NONE VTE Confirmed by (Test) NONE Discharge Core Measures - Per Current guidelines, there needs to be overlap - treatment for the first 5 days of Warfarin therapy. - If discharged on Warfarin prior to 5 days of - overlap therapy, the patient will need to be - assessed for post discharge needs including - *Post discharge parental anticoagulation - *Warfarin and/or parental anticoagulation education - *Follow up date to check INR post discharge At least 5 days overlap therapy as Inpatient No Meds if any: Prescribed or Continued at Discharge Note: Overlap Therapy is Warfarin and Anticoagulant Meds if any: NOT Prescribed or Continued at Discharge
[2017-01-25 11:08] VITALS: BP 164/100
--- NOTE | 2017-01-25 12:13 | Cons- Gastroenterology ---
General Information and HPI Consulting Request Date of Consult: 01/25/17 Requested By: ADITI AMEZQUITA MD Reason for Consult: Hematochezia Source of Information: patient Exam Limitations: poor historian History of Present Illness: The patient is a poor historian. She believes she had a colonoscopy 3 years ago fluoroscopy which was "normal.". She denies heartburn, dysphagia, nausea, vomiting and abdominal pain. She does have increased burping. Recently she is been constipated and forcing/straining with passage of hard stools. She saw bright blood per rectum several times this week, although not "with her stool." She's had no rectal pain. Of note, she is anticoagulated. She's had no dizziness, lightheadedness, syncope, chest pain, shortness of breath. There is no known liver disease. Allergies/Medications Allergies: Coded Allergies: No Known Allergies (01/24/17) Home Med List: Acetaminophen (Pain Reliever) 500 MG CAPSULE 1 TAB PO Q6 PRN PAIN (Reported) Allopurinol 100 MG TABLET 1 TAB PO DAILY GOUT (Reported) Aspirin (Ecotrin*) 81 MG TABLET.DR 1 TAB PO DAILY HEART (Reported) Diltiazem HCl (Diltiazem 24HR ER) 240 MG CAP.ER.24H 1 CAP PO DAILY AFIB/ HYPERTENSION (Reported) Docusate Sodium (Colace) 100 MG CAPSULE 1 CAP PO BID CONSTIPATION (Reported) Escitalopram Oxalate (Lexapro) 5 MG TABLET 1 TAB PO DAILY DEPRESSION ( Reported) Furosemide 20 MG TABLET 1 TAB PO DAILY LOWER EXTREMITY SWELLING (Reported) Levothyroxine Sodium 100 MCG TABLET 1 TAB PO DAILY AC THYROID (Reported) Lisinopril 20 MG TABLET 1 TAB PO BID HYPERTENSION (Reported) Metoprolol Succinate 25 MG TAB 1 TAB PO DAILY AFIB/HTN (Reported) Polyethylene Glycol 3350 (Miralax) 17 GRAM POWD.PACK 1 PAC PO DAILY CONSTIPATION dissolve in water Potassium Chloride (Klor-Con M20) 20 MEQ TAB.ER.PRT 1 TAB PO DAILY HYPOKALEMIA (Reported) Sennosides/Docusate Sodium (Senokot-S Tablet) 8.6 MG-50 MG TABLET 1 TAB PO BID CONSTIPATION Tramadol HCl 50 MG TABLET 1 TAB PO TIDPRN PAIN (Reported) Warfarin Sodium (Coumadin) 2.5 MG TABLET 1 TAB PO DAILY AFIB (Reported) mainatain INR 2-3 Current Medications: Current Medications Sig/Tatyana Start time Last Medication Dose Route Stop Time Status Admin Acetaminophen 650 MG .STK-MED ONE 01/24 1838 DC PO 01/24 1839 Acetaminophen 500 MG Q6P PRN 01/24 1700 01/25 PO 0716 Acetaminophen 500 MG Q6P PRN 01/24 1630 CAN PO Allopurinol 100 MG DAILY 01/25 1000 CAN PO Allopurinol 100 MG DAILY 01/24 1649 AC 01/25 PO 1107 Aspirin Buffered 81 MG DAILY 01/24 1647 AC 01/25 PO 1107 Diltiazem HCl 240 MG DAILY 01/24 1647 AC 01/25 PO 1106 Docusate Sodium 100 MG BID 01/24 2200 AC 01/25 PO 1105 Escitalopram Oxalate 5 MG DAILY 01/24 1647 AC 01/25 PO 1107 Furosemide 20 MG DAILY 01/24 1647 AC 01/25 PO 1105 Levothyroxine Sodium 0.1 MG DAILY AC 01/25 0700 AC 01/25 PO 0715 Levothyroxine Sodium 0.1 MG DAILY AC 01/24 1648 WA 01/24 PO 1943 Lisinopril 20 MG BID 01/24 2200 AC 01/25 PO 1105 Magnesium Hydroxide 5 ML Q6 PRN 01/24 1700 PO Metoprolol Succinate 25 MG DAILY 01/24 1648 01/25 PO 1108 Patient Medication 1 UNIT ONE NR 01/24 1730 [facility] ED 01/24 1800 Patient Medication 1 UNIT ONE NR 01/24 1730 [facility] ED 01/24 1800 Patient Medication 1 UNIT ONE NR 01/24 1730 [facility] ED 01/24 1800 Patient Medication 1 UNIT ONE NR 01/24 1730 [facility] ED 01/24 1800 Potassium Chloride 10 MEQ DAILY 01/24 1648 01/24 PO 1943 Tramadol HCl 50 MG TIDPRN PRN 01/24 1700 01/25 PO 0024 Past History Travel History Traveled to [place] past 21 day No Medical History Blood Transfusion Hx: Yes Neurological: NONE EENT: NONE Cardiovascular: AFIB, chronic venous insuff, hypertension, hyperlipidemia Respiratory: NONE Gastrointestinal: lower GI bleed Hepatic: NONE Renal: NONE Musculoskeletal: degen joint disease, falls, gout, osteoarthritis Psychiatric: depression Endocrine: hypothyroidism Blood Disorders: NONE Cancer(s): NONE 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 FH: colon cancer Psychosocial History Where Do You Live? Assisted Living Who Do You Live With? self Services at Home: Home Health Aide, Nursing Primary Language: Nicar[place] Smoking Status: Never Smoked ETOH Use: heavy use Illicit Drug Use: denies illicit drug use Functional Ability ADLs Needs Assist: dressing, eating, toileting, bathing. Ambulation: walker IADLs Independent: telephone. Needs Assist: shopping, housework, finances, food prep, transportation, medication admin. Review of Systems Review of Systems Constitutional: Denies: chills, fever. EENTM: Denies: icterus, epistaxis. Cardiovascular: Denies: chest pain, edema. Respiratory: Denies: hemoptysis, short of breath. GI: Reports: see HPI. Genitourinary: Denies: dysuria, hematuria. Musculoskeletal: Denies: muscle stiffness, neck pain. Skin: Denies: jaundice, lesions. Neurological/Psychological: Denies: cognitive dysfunction, headache. Hematologic/Endocrine: Reports: bleeding. Denies: bruising. Exam & Diagnostic Data Vital Signs and I&O Vital Signs Date Time Temp Pulse Resp B/P B/P Pulse O2 O2 Flow FiO2 Mean Ox Delivery Rate 01/25 1108 83 164/100 01/25 1105 83 164/100 01/25 0746 97.7 83 20 164/100 97 Room Air 01/24 2204 85 125/70 01/24 2200 98.4 85 18 125/70 97 Room Air 01/24 1943 94 145/90 01/24 1638 63 21 172/80 93 Room Air 01/24 1630 Room Air 01/24 1529 98.5 92 18 184/95 96 01/24 1231 98.6 76 18 180/78 98 Room Air Intake & Output 01/25 1600 01/25 0400 01/24 1600 01/24 0400 01/23 1600 01/23 0400 Intake Total 260 250 Output Total 100 Balance 260 150 Intake, IV 20 Intake, Oral 240 250 Output, Urine 100 Patient 150 lb 145 lb Weight Weight Reported by Patient Measurement Method Physical Exam: Elderly female, no apparent distress. Alert and oriented with normal cognition. Skin normal without rash, lesion or jaundice. No stigmata of chronic liver disease. No adenopathy. No scleral icterus. No oropharyngeal lesion. Neck supple without neck mass or thyromegaly. Heart regular rhythm. Lungs clear. Abdomen is soft and nondistended with normal bowel sounds, and no tenderness, mass or organomegaly. Extremities without clubbing, cyanosis or edema. Rectal examination: No external lesion, no internal lesion, scybalous brown stool, no fresh or old blood. Results Pertinent Lab Results: Laboratory Tests 01/25 01/24 0705 0925 Chemistry Sodium (137 - 145 mmol/L) 143 Potassium (3.5 - 5.1 mmol/L) 3.6 Chloride (98 - 107 mmol/L) 101 Carbon Dioxide (22 - 30 mmol/L) 30 Anion Gap (5 - 16) 12 BUN (7 - 17 mg/dL) 13 Creatinine (0.5 - 1.0 mg/dL) 0.6 Estimated GFR (>60 ml/min) > 60 BUN/Creatinine Ratio (7 - 25 %) 21.7 Glucose (65 - 99 mg/dL) 94 Calcium (8.4 - 10.2 mg/dL) 9.3 Total Bilirubin (0.2 - 1.3 mg/dL) 0.8 AST (14 - 36 U/L) 26 ALT (9 - 52 U/L) 34 Alkaline Phosphatase (<127 U/L) 109 Total Protein (6.3 - 8.2 g/dL) 6.6 Albumin (3.5 - 5.0 g/dL) 4.0 Globulin (1.9 - 4.2 gm/dL) 2.6 Albumin/Globulin Ratio (1.1 - 2.2 %) 1.5 Coagulation PT (9.4 - 12.5 SEC) 25.2 H 27.1 H INR (0.90 - 1.19) 2.42 H 2.61 H Hematology CBC w Diff NO MAN DIFF REQ NO MAN DIFF REQ WBC (4.8 - 10.8 /CUMM) 6.9 7.6 RBC (4.20 - 5.40 /CUMM) 4.34 4.65 Hgb (12.0 - 16.0 G/DL) 13.0 13.8 Hct (37 - 47 %) 39.2 42.2 MCV (81.0 - 99.0 FL) 90.5 90.9 MCH (27.0 - 31.0 PG) 30.0 29.8 RDW (11.5 - 14.5 %) 13.1 12.8 Plt Count (130 - 400 /CUMM) 264 280 MPV (7.4 - 10.4 FL) 8.7 8.4 Gran % (42.2 - 75.2 %) 62.1 67.1 Lymphocytes % (20.5 - 51.1 %) 22.1 19.6 L Monocytes % (1.7 - 9.3 %) 13.1 H 11.0 H Eosinophils % (0 - 5 %) 2.1 1.7 Basophils % (0.0 - 2.0 %) 0.6 0.6 Absolute Granulocytes (1.4 - 6.5 /CUMM) 4.3 5.1 Absolute Lymphocytes (1.2 - 3.4 /CUMM) 1.5 1.5 Absolute Monocytes (0.10 - 0.60 /CUMM) 0.9 H 0.8 H Absolute Eosinophils (0.0 - 0.7 /CUMM) 0.1 0.1 Absolute Basophils (0.0 - 0.2 /CUMM) 0 0 PUBS MCHC (33.0 - 37.0 G/DL) 33.2 32.8 L Imaging/Other Studies: CT scan yesterday: IMPRESSION: 1. Pancolonic diverticulosis and diverticular disease of the sigmoid colon. There is no overt diverticulitis. 2. 3 x 2.2 x 2.6 cm mass along the capsular surface of hepatic segment 4B. This could be further assessed with ultrasound to confirm presence of a solid lesion. Then, if deemed clinically appropriate, a multiphase contrast-enhanced CT or MR examination of the liver could be performed. 3. Multiple bilateral renal cysts, including a prominent peripelvic cyst in the left upper pole. Some of the hypodense renal cortical lesions are too small to characterize but are likely cysts. 4. Extensive atherosclerotic disease of the aorta and iliac vessels without aneurysm. Cardiomegaly and coronary artery atherosclerotic disease, as well. Pulmonary artery trunk is 4 cm diameter, suggestive of pulmonary arterial hypertension. 5. The T11 vertebral body compression fracture is probably subacute. Assessment/Plan Assessment/Recommendations: 1. Hematochezia in the setting of constipation/difficulty with evacuation, in an anticoagulated patient, with hemodynamic stability and no change in hemoglobin/hematocrit. On examination today, there is no blood in the rectum. This likely represents outlet/hemorrhoidal bleed; differential diagnosis includes minor diverticular bleed, angiodysplasia, rectal ulceration, etc. Reportedly, the patient had a "normal" colonoscopy [address] scan demonstrates diverticulosis. 2. Liver lesion described on CT scan. Recommendations: * Advance to regular diet * Continue anticoagulation * No plan for colonoscopy at this time * Begin daily MiraLAX, and encourage high-fiber diet * Discharge with outpatient follow-up with Dr. Neri this week * Follow-up CBC within the week * Follow up with me within 2 weeks * Will address liver lesion as outpatient Thank you very much for this consultation. Please call or reconsult as needed. Consult Acknowledgment - Thank you for your consult request.
== END 2017-01-25 13:33 | disposition home health service (06) ==
LOC: ERH 09:07 → ERHI 15:04 → 2NB 16:31 → ENPENDDIS 01-25 12:30 → 2NB 01-25 13:33
PROVIDERS: Emergency Medicine; Internal Medicine Interventional Cardiology; ADMIT Internal Medicine
DX: K92.1 Melena (principal); K57.90 Diverticulosis of intestine, part unspecified, without perforation or abscess without bleeding; I48.0 Paroxysmal atrial fibrillation; Z79.01 Long term (current) use of anticoagulants; I10 Essential (primary) hypertension; E78.5 Hyperlipidemia, unspecified; E03.9 Hypothyroidism, unspecified; M10.9 Gout, unspecified; M19.90 Unspecified osteoarthritis, unspecified site; F32.9 Major depressive disorder, single episode, unspecified; I25.10 Atherosclerotic heart disease of native coronary artery without angina pectoris; K59.00 Constipation, unspecified; K76.9 Liver disease, unspecified
CPT/HCPCS: 6040; 36415; 74177; G0378

== ENCOUNTER 2017-02-01 01:06 | Emergency (ER) | payer OTHER ==
[~2017-02-01] VITALS: Ht 162.6 cm; Wt 65.3 kg
[~2017-02-01 01:06] MED LIST: ALLOPURINOL100 M1 PO; ASPIRIN EC81 M1 PO; COLACE100 M1 PO; COUMADIN2.5 M1 PO; DILTIAZEM 24HR240 MG PO; FUROSEMIDE20 M1 PO; KLOR-CON M2020 ME1 PO; LEVOTHYROXINE100 MC1 PO; LEXAPRO5 M1 PO; LISINOPRIL20 M1 PO; METOPROLOL SUCC25 M1 PO; MILK OF MA400 MG/52 PO; MIRALAX17 G1 PO; PAIN RELIEVER500 MG PO; SENOKOT-S TABL1 EACH PO; TRAMADOL HCL50 M1 PO
--- NOTE | 2017-02-01 01:23 | ED UPPER/LOWER EXTREMITY COMPL ---
History of Present Illness General Chief Complaint: General Adult Stated Complaint: BIBA KNEE PAIN Source: patient Exam Limitations: no limitations Vital Signs & Intake/Output Vital Signs & Intake/Output Vital Signs Date Time Temp Pulse Resp B/P B/P Pulse O2 O2 Flow FiO2 Mean Ox Delivery Rate 02/02 1411 98.7 02/02 1319 64 18 173/87 96 Room Air 02/02 1156 99.4 105 15 160/76 94 Room Air Room Air 02/02 1050 97.2 100 18 179/90 96 Room Air 02/02 1049 100 179/90 02/02 1049 100 179/90 Allergies Coded Allergies: No Known Allergies (01/24/17) Triage Note: PT BIBA FROM ASSISTED LIVING C/O 1010 L KNEE. PAIN. PT DENIES INJURY, DENIES FALL. Triage Nurses Notes Reviewed? yes Onset: Abrupt Duration: hour(s): (FEW) Timing: single episode today Severity: moderate, severe Pain/Injury Location: Bilateral: Shoulder, Knee. Method of Injury: NONE Modifying Factors: Worsens With: movement. Associated Symptoms: stiffness HPI: This is an 86-year-old female who arrives via EMS from assisted living for chief complaint of bilateral knee pain, shoulder pain. Patient has history of arthritis and states that her pain is escalating for the past few days but worse tonight. No trauma or fall. She states she is waiting for her doctor to prescribe her pain medication. She takes aspirin or Tylenol which only last 10 minutes according to the patient. Denies any chest pain or shortness of breath. Today when EMS came to do an assisted lift out of the chair patient was able unable to stand and walk. (TONI SALAS,ANDREW) Reconcile Medications Acetaminophen (Pain Reliever) 500 MG CAPSULE 1 TAB PO Q6 PRN PAIN (Reported) Allopurinol 100 MG TABLET 1 TAB PO DAILY GOUT (Reported) Aspirin (Ecotrin*) 81 MG TABLET.DR 1 TAB PO DAILY HEART (Reported) Diltiazem HCl (Diltiazem 24HR ER) 240 MG CAP.ER.24H 1 CAP PO DAILY AFIB/ HYPERTENSION (Reported) Docusate Sodium (Colace) 100 MG CAPSULE 1 CAP PO BID CONSTIPATION (Reported) Escitalopram Oxalate (Lexapro) 5 MG TABLET 1 TAB PO DAILY DEPRESSION ( Reported) Furosemide 20 MG TABLET 1 TAB PO DAILY LOWER EXTREMITY SWELLING (Reported) Levothyroxine Sodium 100 MCG TABLET 1 TAB PO DAILY AC THYROID (Reported) Lisinopril 20 MG TABLET 1 TAB PO BID HYPERTENSION (Reported) Metoprolol Succinate 25 MG TAB 1 TAB PO DAILY AFIB/HTN (Reported) Polyethylene Glycol 3350 (Miralax) 17 GRAM POWD.PACK 1 PAC PO DAILY CONSTIPATION dissolve in water Potassium Chloride (Klor-Con M20) 20 MEQ TAB.ER.PRT 1 TAB PO DAILY HYPOKALEMIA (Reported) Sennosides/Docusate Sodium (Senokot-S Tablet) 8.6 MG-50 MG TABLET 1 TAB PO BID CONSTIPATION Tramadol HCl 50 MG TABLET 1 TAB PO TIDPRN PAIN (Reported) Warfarin Sodium (Coumadin) 2.5 MG TABLET 1 TAB PO DAILY AFIB (Reported) (AJAY SALAS,GABE Moon) Past History Travel History Traveled to [place] past 21 day No Medical History Any Pertinent Medical History? 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 FH: colon cancer Hx Contributory? No (TONI SALAS,ANDREW) Review of Systems Review of Systems Constitutional: Denies: chills, fever. EENTM: Reports: no symptoms. Respiratory: Denies: cough, short of breath. Cardiovascular: Denies: chest pain, palpitations. Gastrointestinal/Abdominal: Reports: no symptoms. Genitourinary: Reports: no symptoms. Musculoskeletal: Reports: joint pain, muscle pain. Denies: joint swelling, muscle stiffness, neck pain. Skin: Reports: no symptoms. Neurological/Psychological: Reports: anxiety. Denies: depressed, emotional problems. Hematologic/Endocrine: Reports: no symptoms. Immunological: Reports: no symptoms. All Other Systems: Reviewed and Negative (ANDREW MUÑOZ MD) Physical Exam Physical Exam General Appearance: well developed/nourished, alert, awake, mild distress Head: atraumatic Eyes: Bilateral: PERRL, EOMI. Ears, Nose, Throat: normal pharynx, normal ENT inspection, hearing grossly normal Neck: normal inspection, supple Cardiovascular/Respiratory: regular rate/rhythm Peripheral Pulses: 2+ radial (R), 2+ radial (L) Back: normal inspection Shoulder Left: normal range of motion, normal inspection Shoulder Right: normal range of motion, normal inspection Elbow Right: normal range of motion, normal inspection Leg Left: normal range of motion, normal inspection Leg Right: normal range of motion, normal inspection Hip Left: normal range of motion, normal inspection Hip Right: normal range of motion, normal inspection Knee Left: normal range of motion, normal inspection Knee Right: normal range of motion, normal inspection Neurologic/Tendon: normal sensation, normal motor functions, normal tendon functions Skin: intact, normal color, warm/dry Lymphatic: no anterior cervical andres (ANDREW MUÑOZ MD) Progress Differential Diagnosis: sprain, ARTHRITIS Plan of Care: Orders Procedure Date/time Status PROTHROMBIN TIME 02/01 1123 Complete Theraputic Activities 15 Min 02/01 UNK Complete MOBILITY GOAL STATUS 02/01 UNK Complete MOBILITY CURRENT STATUS 02/01 UNK Complete PT EVAL LOW COMPLEX 20 MIN 02/01 UNK Complete Current Medications Sig/Tatyana Start time Last Medication Dose Stop Time Status Admin Tramadol HCl 50 MG ONCE ONE 02/02 0800 UNVr 02/02 (Ultram) 02/02 0801 0759 Trazodone HCl 25 MG AT BEDTIME 02/01 2200 UNVr 02/01 (Desyrel) 2145 Tramadol HCl 50 MG TIDPRN 02/01 1130 AC 02/02 (Ultram) 0151 Escitalopram Oxalate 5 MG DAILY 02/01 1122 UNVr 02/01 (Lexapro) 1237 Furosemide 20 MG DAILY 02/01 1122 UNVr 02/01 (Lasix) 1237 Levothyroxine Sodium 0.1 MG DAILY AC 02/01 1122 UNVr 02/02 (Synthroid) 0805 Lisinopril 20 MG BID 02/01 1122 UNVr 02/01 (Prinivil) 2145 Metoprolol Succinate 25 MG DAILY 02/01 1122 AC 02/01 (Toprol XL) 1237 Potassium Chloride 20 MEQ DAILY 02/01 1122 UNVr 02/01 (K-Dur) 1237 Warfarin Sodium 2.5 MG DAILY 02/01 1122 UNVr 02/01 (Coumadin) 1435 Allopurinol 100 MG DAILY 02/01 1121 UNVr 02/01 (Zyloprim) 1237 Aspirin Buffered 81 MG DAILY 02/01 1121 UNVr 02/01 (Ecotrin) 1237 Diltiazem HCl 240 MG DAILY 02/01 1121 UNVr 02/01 (Cardizem CD) 1237 Docusate Sodium 100 MG BID 02/01 1121 UNVr 02/01 (Colace) 1237 Laboratory Tests 02/01/17 1211: PT 26.0 H, INR 2.50 H 5:12 AM PATIENT REPORTED FEELING BETTER AFTER PO TRAMADOL. HOWEVER SHE WAS UNABLE TO ATTEMPT TO BEAR WEIGHT WITH THE WALKER WHICH SHE DOES AT BASELINE DESPITE HELP AND ENCOURAGEMENT. SHE WILL STAY FOR FORMAL PT EVALUATION. (ANDREW MUÑOZ MD) Hand-Off Endorsed To: GABE MOSS MD Endorsed Time: 07 Pending: consult (PT) (ANDREW MUÑOZ MD) Hand-Off Endorsed To: CHARLEEN MEIER MD Endorsed Time: 1899 Pending: consult (CASE MANAGEMENT) Comments: Patient has been seen and evaluated by physical therapy. They recommend short- term rehabilitation. Patient felt better after IM morphine and it allowed her to sleep however she was very incoherent while the morphine was active. Patient required a max assist to get from chair to the stretcher. (GABE MOSS MD) Hand-Off Endorsed To: NEENA WALLACE DO Endorsed Time: 07 Pending: consult (CHARLEEN MEIER MD) Departure Departure Disposition: STILL A PATIENT Condition: Stable Clinical Impression Primary Impression: Arthritis Referrals: WILLIAM SALAS,LUIS Sapp (PCP/Family) Departure Forms: Customer Survey General Discharge Information (ANDREW MUÑOZ MD) Departure Comments 02/02/17 8 AM PATIENT SIGNED OUT TO ME BY DR MEIER AT 7 AM AWAITING CASE MANAGEMENT CONSULT. The patient was accepted and placed by case management at [facility]. She did complain of right knee pain. X-ray revealed severe degenerative joint disease. No evidence of fracture. (NEENA WALLACE DO) Departure Departure Disposition: STILL A PATIENT Condition: Stable Clinical Impression Primary Impression: Arthritis Referrals: LUIS THOMAS MD (PCP/Family) Departure Forms: Customer Survey General Discharge Information (ANDREW MUÑOZ MD) Departure Comments 02/02/17 8 AM PATIENT SIGNED OUT TO ME BY DR MEIER AT 7 AM AWAITING CASE MANAGEMENT CONSULT. (ENENA WALLACE DO) Endorsed Time: 0700 Pending: consult (RENEA SALAS,CHARLEEN Shine) Departure Departure Disposition: STILL A PATIENT Condition: Stable Clinical Impression Primary Impression: Arthritis Referrals: LUIS THOMAS MD (PCP/Family) Departure Forms: Customer Survey General Discharge Information (ANDREW MUÑOZ MD)
[2017-02-01 06:03] LABS: ABSOLUTE BASOPHIL COUNT 0 /CUMM (0.0-0.2); ABSOLUTE EOSINOPHIL COUNT 0 /CUMM (0.0-0.7); ABSOLUTE GRANULOCYTE CT 7.2 /CUMM (1.4-6.5); ABSOLUTE LYMPH COUNT 1.3 /CUMM (1.2-3.4); ABSOLUTE MONOCYTE COUNT 1.4 /CUMM (0.10-0.60); BASOPHIL % 0.4 % (0.0-2.0); EOSINOPHIL % 0.2 % (0-5); GRANULOCYTE % 72.9 % (42.2-75.2); HEMATOCRIT 37.3 % (37-47); MEAN CORPUSCULAR HGB 30.2 PG (27.0-31.0); MEAN CORPUSCULAR HGB CONC 33.4 G/DL (33.0-37.0); MEAN CORPUSCULAR VOLUME 90.5 FL (81.0-99.0); MEAN PLATELET VOLUME 8.8 FL (7.4-10.4); PLATELET COUNT 278 /CUMM (130-400); RBC DISTRIBUTION WIDTH 12.6 % (11.5-14.5); RED BLOOD CELL CT 4.12 /CUMM (4.20-5.40); WHITE BLOOD CELL COUNT 9.9 /CUMM (4.8-10.8)
--- NOTE | 2017-02-02 10:45 | RADIOLOGY REPORT ---
EXAMINATION: XR KNEE, RIGHT CLINICAL INFORMATION: Knee pain COMPARISON: None TECHNIQUE: Four views of the right knee. FINDINGS: There are advanced degenerative involving the patellofemoral and tibiofemoral compartments. Advanced juxta-articular osteophytosis with narrowing of the tibiofemoral joint space and valgus deformity of the knee noted. A small suprapatellar joint effusion also present. Suprapatellar soft tissue calcification also present. No acute fracture or dislocation seen. Atherosclerotic calcifications of distal femoral artery present. IMPRESSION: Advanced right knee DJD.
[2017-02-02 13:19] VITALS: BP 173/87
== END 2017-02-02 15:05 ==
LOC: ERH 01:06
PROVIDERS: Emergency Medicine
DX: M17.9 Osteoarthritis of knee, unspecified (principal)
CPT/HCPCS: 73562-RT; 81001; 96372; 97161-GP; 97530-GP; G8978-GP; G8979-GP

== ENCOUNTER 2017-02-04 16:54 | Inpatient (IN) | payer OTHER ==
[~2017-02-04] VITALS: Ht 160 cm; Wt 61.2 kg
--- NOTE | 2017-02-04 17:00 | ED MVC/FALL/TRAUMA COMPLAINT ---
History of Present Illness General Chief Complaint: Fall Stated Complaint: BIBA FALL Source: patient, old records Exam Limitations: confusion, poor historian Vital Signs & Intake/Output Vital Signs & Intake/Output Vital Signs Date Time Temp Pulse Resp B/P B/P Pulse O2 O2 Flow FiO2 Mean Ox Delivery Rate 02/04 1701 98.0 100 18 188/95 95 Room Air Allergies Coded Allergies: No Known Allergies (01/24/17) Reconcile Medications Acetaminophen (Pain Reliever) 500 MG CAPSULE 1 TAB PO Q6 PRN PAIN (Reported) Allopurinol 100 MG TABLET 1 TAB PO DAILY GOUT (Reported) Aspirin (Ecotrin*) 81 MG TABLET.DR 1 TAB PO DAILY HEART (Reported) Diltiazem HCl (Diltiazem 24HR ER) 240 MG CAP.ER.24H 1 CAP PO DAILY AFIB/ HYPERTENSION (Reported) Docusate Sodium (Colace) 100 MG CAPSULE 1 CAP PO BID CONSTIPATION (Reported) Escitalopram Oxalate (Lexapro) 5 MG TABLET 1 TAB PO DAILY DEPRESSION ( Reported) Furosemide 20 MG TABLET 1 TAB PO DAILY LOWER EXTREMITY SWELLING (Reported) Levothyroxine Sodium 100 MCG TABLET 1 TAB PO DAILY AC THYROID (Reported) Lisinopril 20 MG TABLET 1 TAB PO BID HYPERTENSION (Reported) Metoprolol Succinate 25 MG TAB 1 TAB PO DAILY AFIB/HTN (Reported) Polyethylene Glycol 3350 (Miralax) 17 GRAM POWD.PACK 1 PAC PO DAILY CONSTIPATION dissolve in water Potassium Chloride (Klor-Con M20) 20 MEQ TAB.ER.PRT 1 TAB PO DAILY HYPOKALEMIA (Reported) Sennosides/Docusate Sodium (Senokot-S Tablet) 8.6 MG-50 MG TABLET 1 TAB PO BID CONSTIPATION Tramadol HCl 50 MG TABLET 1 TAB PO TIDPRN PAIN (Reported) Warfarin Sodium (Coumadin) 2.5 MG TABLET 1 TAB PO DAILY AFIB (Reported) mainatain INR 2-3 Triage Nurses Notes Reviewed? yes Onset: Abrupt Duration: hour(s): (FEW) Timing: single episode today Severity: moderate, severe Injuries/Fall Location: RIGHT LEG Method of Injury: fall Loss of Consciousness: no loss of consciousness Modifying Factors: Worsens With: movement. Associated Symptoms: muscle spasms HPI: This is an 86-year-old female with history of A. fib on blood thinners who [facility] chief complaint of a fall. According to EMS she had a fall from a seated position. [facility] to the [facility]. Patient had severe knee pain and was unable to ambulate. She was assessed by physical therapy at that time and was placed for short-term rehabilitation. Patient arrives awak, alert but confused. She think she is coming to us from her son's house. No reported head trauma. She does complain of severe right groin pain in her right leg is externally rotated. Past History Travel History Traveled to [facility] past 21 day No Medical History Any Pertinent Medical History? 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 FH: colon cancer Hx Contributory? No Review of Systems Review of Systems Constitutional: Denies: chills, fever. Eyes: Reports: no symptoms. Ears, Nose, Throat, Mouth: Reports: no symptoms. Respiratory: Denies: short of breath. Cardiovascular: Denies: chest pain, palpitations. Gastrointestinal/Abdominal: Reports: no symptoms. Genitourinary: Reports: no symptoms. Musculoskeletal: Reports: joint pain. Skin: Reports: no symptoms. Neurological/Psychological: Reports: anxiety, confusion. All Other Systems: Reviewed and Negative Physical Exam Physical Exam General Appearance: well developed/nourished, alert, awake Head: atraumatic, normal appearance Eyes: Bilateral: normal appearance, PERRL, EOMI. Ears, Nose, Throat, Mouth: moist mucous membrane Neck: normal inspection, supple, full range of motion Respiratory: normal breath sounds, chest non-tender, no respiratory distress Cardiovascular: regular rate/rhythm, normal peripheral pulses Peripheral Pulses: 2+ radial (R), 2+ radial (L) Gastrointestinal: normal bowel sounds, soft, non-tender Back: normal inspection Extremities: right hip shortened, externally rotated Neurologic/Psych: awake, alert, ORIENTED X 2 Skin: intact, normal color, warm/dry Core Measures ACS in differential dx? No Severe Sepsis Present: No Septic Shock Present: No Progress Differential Diagnosis: pelvis injury, femur fracture, ich, MECHANICAL FALL Plan of Care: Orders Procedure Date/time Status Patient Data 02/04 1915 Active Vital Signs 02/04 1841 Active Code Status 02/04 1841 Active Admit to inpatient 02/04 1838 Active Jaffe, Insertion/Removal/Asses 02/04 165 Active CULTURE,URINE 02/04 165 Active TROPONIN LEVEL 02/04 1659 Complete PARTIAL THROMBOPLASTIN TIME 02/04 165 Complete PROTHROMBIN TIME 02/04 165 Complete COMPREHENSIVE METABOLIC PANEL 02/04 165 Complete CBC WITHOUT DIFFERENTIAL 02/04 1659 Complete EKG 02/04 1659 Active TYPE & SCREEN (NOT X-MATCH) 02/04 165 Complete Laboratory Tests 02/04/17 1731: Anion Gap 15, Estimated GFR > 60, BUN/Creatinine Ratio 38.3 H, Glucose 109 H, Calcium 9.4, Total Bilirubin 1.1, AST 34, ALT 47, Alkaline Phosphatase 163 H, Troponin I < 0.01, Total Protein 6.6, Albumin 3.7, Globulin 2.9, Albumin/ Globulin Ratio 1.3, PT 17.8 H, INR 1.70 H, APTT 31, CBC w Diff NO MAN DIFF REQ , RBC 4.50, MCV 90.4, MCH 29.8, RDW 13.5, MPV 9.4, Gran % 78.5 H, Lymphocytes % 9.2 L, Monocytes % 11.6 H, Eosinophils % 0.3, Basophils % 0.4, Absolute Granulocytes 9.9 H, Absolute Lymphocytes 1.2, Absolute Monocytes 1.5 H, Absolute Eosinophils 0, Absolute Basophils 0.1, PUBS MCHC 33.0 Microbiology 02/04 1737 URINE ROUT: Urine Culture - RECD DISCUSSED PATIENT'S CASE WITH DAUGHTER: XANDER NAPIER [phone] ( CELL) SON HUEY (TBI) DR [facility] CONSULTED, WILL MANAGE WHEN PATIENT IS MEDICALLY CLEARED. D/W HOSPITALIST, ADMITTED TO MEDICAL FLOOR. (TONI SALAS,ANDREW) Diagnostic Imaging: Viewed by Me: Radiology Read, CT Scan. Discussed w/RAD: Radiology Read, CT Scan. Radiology Impression: PATIENT: REYNA REHMAN PRESENT AGE: 86 PATIENT ACCOUNT NO: [id number] : 32 LOCATION: [facility] ORDERING PHYSICIAN: ANDREW MUÑOZ MD SERVICE DATE: 02/04/17 EXAM TYPE: CAT - CT HEAD WO IV CONTRAST EXAMINATION: NONCONTRAST HEAD CT INDICATION INFORMATION: Fall. On blood thinners. COMPARISON: None TECHNIQUE: Noncontrast CT of the head was performed from the skull base to the vertex. Soft tissue and bony algorithms were evaluated. Coronal images were created at the technologist workstation. DLP: 672 mGy-cm FINDINGS: There is no evidence of acute intracranial hemorrhage. No abnormal mass effect or midline shift is appreciated. Romero-white differentiation is well preserved. No extra-axial fluid collections. The ventricular system and cortical sulci are mildly dilated, consistent with age-related volume loss. There are areas of low density in the periventricular and subcortical white matter, most consistent with sequelae of microvascular ischemic change. The osseous structures and soft tissues are normal. There are mild calcifications of the cavernous internal carotid arteries. The visualized paranasal sinuses and mastoid air cells are well aerated. IMPRESSION: No intracranial hemorrhage. Age-related volume loss and microvascular ischemic changes. DICTATED BY: NANCY CHILDRESS MD DATE/TIME DICTATED:02/04/171813 RECRUITING MANAGER:JAELYN DATE/TIME TRANSCRIBED:1813 CONFIDENTIAL, DO NOT COPY WITHOUT APPROPRIATE AUTHORIZATION. < Electronically signed in Other Vendor System> SIGNED BY: NANCY CHILDRESS MD 02/04/17 1822, V Initial ED EKG: AFIB Departure Departure Time of Disposition: 1837 Disposition: STILL A PATIENT Condition: Stable Clinical Impression Primary Impression: Fracture, intertrochanteric, right femur Referrals: WILLIAM SALAS,LUIS Sapp (PCP/Family) Departure Forms: Customer Survey General Discharge Information Admission Note Spoke With: YULIYA SYLVESTER MD Documentation of Exam: Documentation of any treatments & extenuating circumstances including Concerns Regarding Discharge (functional status, medication knowledge or non-compliance, living conditions, etc.) that warrant an admission rather than observation: [IV PAIN CONTROL, CLEARANCE FOR ORTHOPEDIC RIGHT HIP REPAIR, MONITOR I/O, ]
--- NOTE | 2017-02-04 17:24 | NUR ---
86 YO FEMALE BIBA FROM SNF. PT HAD AN UNWITNESSED FALL FROM A CHAIR., PT WAS FOUND ON THE FLOOR BY STAFF MEMBERS. PT ARRIVES ALERT, CONFUSED AT TIMES. PT C/O 10/10 PAIN TO R HIP AREA. MD TO BEDSIDE ON ARRIVAL TO ROOM. IV EST. MPT MEDICATED WITH 2MG IV MORPHINE PER ORDER. [facility] PLACED PER ORDER. EKG COMPLETE ON ARRIVAL TO ROOM
--- NOTE | 2017-02-04 17:44 | NUR ---
LABS DRAWN AND SENT BY THIS [facility] (BLUE,2 SST,LAV,PINK) URINE SPECIMEN OBTAINED FROM JASSO AND SENT TO LAB
[2017-02-04 17:49] LABS: ABSOLUTE BASOPHIL COUNT 0.1 /CUMM (0.0-0.2); ABSOLUTE EOSINOPHIL COUNT 0 /CUMM (0.0-0.7); ABSOLUTE GRANULOCYTE CT 9.9 /CUMM (1.4-6.5); ABSOLUTE LYMPH COUNT 1.2 /CUMM (1.2-3.4); ABSOLUTE MONOCYTE COUNT 1.5 /CUMM (0.10-0.60); BASOPHIL % 0.4 % (0.0-2.0); EOSINOPHIL % 0.3 % (0-5); GRANULOCYTE % 78.5 % (42.2-75.2); HEMATOCRIT 40.7 % (37-47); MEAN CORPUSCULAR HGB 29.8 PG (27.0-31.0); MEAN CORPUSCULAR VOLUME 90.4 FL (81.0-99.0); MEAN PLATELET VOLUME 9.4 FL (7.4-10.4); PLATELET COUNT 359 /CUMM (130-400); RBC DISTRIBUTION WIDTH 13.5 % (11.5-14.5); WHITE BLOOD CELL COUNT 12.6 /CUMM (4.8-10.8)
--- NOTE | 2017-02-04 17:55 | NUR ---
PT TO RADIOLOGY
[2017-02-04 18:01] LABS: PT 17.8 SEC (9.4-12.5); PTT 31 SEC (25-37)
--- NOTE | 2017-02-04 18:06 | NUR ---
MEDICATED WITH VALIUM PER ORDER. PT TO RADIOLOGY FOR TESTING, MD CARLIN
--- NOTE | 2017-02-04 18:20 | NUR ---
PT BACK FROM RADIOLOGY AT THIS TIME
--- NOTE | 2017-02-04 18:22 | CT SCAN REPORT ---
EXAMINATION: NONCONTRAST HEAD CT INDICATION INFORMATION: Fall. On blood thinners. COMPARISON: None TECHNIQUE: Noncontrast CT of the head was performed from the skull base to the vertex. Soft tissue and bony algorithms were evaluated. Coronal images were created at the technologist workstation. DLP: 672 mGy-cm FINDINGS: There is no evidence of acute intracranial hemorrhage. No abnormal mass effect or midline shift is appreciated. Romero-white differentiation is well preserved. No extra-axial fluid collections. The ventricular system and cortical sulci are mildly dilated, consistent with age-related volume loss. There are areas of low density in the periventricular and subcortical white matter, most consistent with sequelae of microvascular ischemic change. The osseous structures and soft tissues are normal. There are mild calcifications of the cavernous internal carotid arteries. The visualized paranasal sinuses and mastoid air cells are well aerated. IMPRESSION: No intracranial hemorrhage. Age-related volume loss and microvascular ischemic changes.
--- NOTE | 2017-02-04 18:36 | RADIOLOGY REPORT ---
EXAMINATION:\H\ \N\XR CHEST CLINICAL INFORMATION: Right hip pain following fall. Preoperative chest x-ray. COMPARISON: None. TECHNIQUE: Single AP view of the chest was obtained. FINDINGS: Single AP view of the chest demonstrates pulmonary hypoinflation and bronchovascular crowding. Cardiomediastinal contours are prominent. This finding is indeterminate and may be secondary to portable technique. No large pleural effusions or pneumothoraces are identified. The visualized bones are demineralized and there are multilevel moderate degenerative changes of the thoracic spine. IMPRESSION: Limited exam secondary to patient positioning. Pulmonary hypoinflation and bronchovascular crowding. Prominence of the cardiac and mediastinal silhouettes. This may be secondary to technique or it may represent cardiomegaly with associated prominence of the mediastinum. Consider correlation with a dedicated PA and lateral chest x-ray.
--- NOTE | 2017-02-04 18:39 | RADIOLOGY REPORT ---
EXAMINATION: 1. XR PELVIS 2. XR HIP, RIGHT CLINICAL INFORMATION: Right hip pain after fall COMPARISON: CT abdomen and pelvis 01/24/2017 TECHNIQUE: AP view of the pelvis and 2 views of the right hip FINDINGS: Pelvic ring is intact. Sacroiliac joints are symmetric. Degenerative changes of the lower lumbar spine. Intertrochanteric fracture of the right hip with coxa vara angulation. The femoral head remains well-seated within the acetabulum. Vascular calcifications are noted. IMPRESSION: Intertrochanteric fracture of the right hip.
--- NOTE | 2017-02-04 18:51 | NUR ---
pt medicated with a second dose of morphine per emar for continued pain to her leg
--- NOTE | 2017-02-04 20:22 | NUR ---
PT'S RM ASSIGNMENT 214 BED 1
--- NOTE | 2017-02-04 20:24 | NUR ---
HOUSESTAFF AT BEDSIDE.
--- NOTE | 2017-02-04 20:28 | NUR ---
REPORT GIVEN TO GARY MACEDO ON GEN MED.
--- NOTE | 2017-02-04 20:29 | NUR ---
KYLER TERRELL [phone]
--- NOTE | 2017-02-04 21:14 | History & Physical ---
MARLON REYES 02/04/172113: General Information and HPI MD Statement: I have seen and personally examined REYNA REHMAN and documented this H&P. The patient is a 86 year old F who presented with a patient stated chief complaint of brought in by ambulance from [facility] after a fall. Source of Information: SPOKE WITH NURSE FROM [facility] Exam Limitations: unable to give history, patient's age, not alert/orientated, clinical condition, confusion, dementia, poor historian, physical impairment History of Present Illness: This is a 86-year-old female with past medical history significant for atrial fibrillation on Cardizem and warfarin, hypertension, hyperlipidemia, chronic venous insufficiency, LOWER extremity swelling on Lasix, history of lower GI bleed from hemorrhoids, degenerative joint disease, gout, osteoarthritis, hypothyroidism, depression, constipation was brought to the emergency department this evening from [facility] after an unwitnessed fall around 4pm. Patient is confused, not oriented to time place and person, couldn't provide any history. Most of the information was provided by nurse Licea who took care of the patient at [facility] for 2days. ofnote patient was admitted. In the emergency room on 01/30/2017 for bilateral knee pain, shoulder pain. No trauma or fall at that time. X-ray revealed severe degenerative joint disease. No evidence of fracture. Patient has been seen and evaluated by physical therapy. They recommend short-term rehabilitation. Patient required a max assist to get from chair to the stretcher. The patient was accepted and placed by case management at [facility]. According to the nurse, she was at [facility] for 2 days. She is not oriented to time place and person and looks confused most of the times. She was on her wheel chair, she fell down on to the floor from seated Position, which was an unwitnessed fall. She denied hitting head, denied loss of consciousness. She complains of right hip pain and she was brought to the emergency room. when we saw her in the emergency room, Patient is confused, not oriented to time place and person. she was in pain, pointing pain at right hip and knee. and home , patient sees Dr. Thomas as a PCP Allergies/Medications Allergies: Coded Allergies: No Known Allergies (01/24/17) Home Med list Acetaminophen (Pain Reliever) 500 MG CAPSULE 1 TAB PO Q6 PRN PAIN (Reported) Allopurinol 100 MG TABLET 1 TAB PO DAILY GOUT (Reported) Aspirin (Ecotrin*) 81 MG TABLET.DR 1 TAB PO DAILY HEART (Reported) Diltiazem HCl (Diltiazem 24HR ER) 240 MG CAP.ER.24H 1 CAP PO DAILY AFIB/ HYPERTENSION (Reported) Docusate Sodium (Colace) 100 MG CAPSULE 1 CAP PO BID CONSTIPATION (Reported) Escitalopram Oxalate (Lexapro) 5 MG TABLET 1 TAB PO DAILY DEPRESSION ( Reported) Furosemide 20 MG TABLET 1 TAB PO DAILY LOWER EXTREMITY SWELLING (Reported) Levothyroxine Sodium 100 MCG TABLET 1 TAB PO DAILY AC THYROID (Reported) Lisinopril 20 MG TABLET 1 TAB PO BID HYPERTENSION (Reported) Metoprolol Succinate 25 MG TAB 1 TAB PO DAILY AFIB/HTN (Reported) Polyethylene Glycol 3350 (Miralax) 17 GRAM POWD.PACK 1 PAC PO DAILY CONSTIPATION dissolve in water Potassium Chloride (Klor-Con M20) 20 MEQ TAB.ER.PRT 1 TAB PO DAILY HYPOKALEMIA (Reported) Sennosides/Docusate Sodium (Senokot-S Tablet) 8.6 MG-50 MG TABLET 1 TAB PO BID CONSTIPATION Tramadol HCl 50 MG TABLET 1 TAB PO TIDPRN PAIN (Reported) Warfarin Sodium (Coumadin) 2.5 MG TABLET 1 TAB PO DAILY AFIB (Reported) Compliance With Home Meds: GOOD Past History Travel History Traveled to [place] past 21 day No Medical History Neurological: NONE EENT: NONE Cardiovascular: AFIB, chronic venous insuff, hypertension, hyperlipidemia Respiratory: NONE Gastrointestinal: lower GI bleed Hepatic: NONE Renal: NONE Musculoskeletal: degen joint disease, falls, gout, osteoarthritis Psychiatric: depression Endocrine: hypothyroidism Blood Disorders: NONE Cancer(s): NONE 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 FH: colon cancer Psychosocial History Who Do You Live With? self Services at Home: Home Health Aide, Nursing Primary Language: Maldivian Smoking Status: Never Smoked ETOH Use: occasional use Illicit Drug Use: denies illicit drug use Functional Ability ADLs Needs Assist: dressing, eating, toileting, bathing. Ambulation: walker IADLs Independent: telephone. Needs Assist: shopping, housework, finances, food prep, transportation, medication admin. Review of Systems Review of Systems Constitutional: Denies: see HPI. Comments couldnt get much information about ROS. Exam & Diagnostic Data Last 24 Hrs of Vital Signs/I&O Vital Signs Date Time Temp Pulse Resp B/P B/P Pulse O2 O2 Flow FiO2 Mean Ox Delivery Rate 02/04 2201 98.6 104 18 142/86 95 Room Air 02/05 2012 97.8 108 18 138/82 94 Room Air 02/04 170 98.0 100 18 188/95 95 Room Air Physical Exam General Appearance NOT ORIENTED TO TIME PLACE AND PERSON Skin No Rashes, No Breakdown HEENT Atraumatic Neck Supple, No JVD Lymphatic Cervical nl Cardiovascular Normal S1, Normal S2, No Murmurs Lungs Clear to Auscultation Abdomen Normal Bowel Sounds, Soft Neurological COULDNT PERFORM EXAM Extremities No Clubbing, No Cyanosis, No Edema Vascular Normal Pulses, Pulses Symmetrical Last 24 Hrs of Labs/Garrick: Laboratory Tests 02/04/17 1731: Anion Gap 15, Estimated GFR > 60, BUN/Creatinine Ratio 38.3 H, Glucose 109 H, Calcium 9.4, Total Bilirubin 1.1, AST 34, ALT 47, Alkaline Phosphatase 163 H, Troponin I < 0.01, Total Protein 6.6, Albumin 3.7, Globulin 2.9, Albumin/ Globulin Ratio 1.3, PT 17.8 H, INR 1.70 H, APTT 31, CBC w Diff NO MAN DIFF REQ , RBC 4.50, MCV 90.4, MCH 29.8, RDW 13.5, MPV 9.4, Gran % 78.5 H, Lymphocytes % 9.2 L, Monocytes % 11.6 H, Eosinophils % 0.3, Basophils % 0.4, Absolute Granulocytes 9.9 H, Absolute Lymphocytes 1.2, Absolute Monocytes 1.5 H, Absolute Eosinophils 0, Absolute Basophils 0.1, PUBS MCHC 33.0 Microbiology 02/04 173 URINE ROUT: Urine Culture - RECD Assessment/Plan Assessment: This is a 86-year-old female with past medical history significant for atrial fibrillation on Cardizem and warfarin, hypertension, hyperlipidemia, chronic venous insufficiency, LOWER extremity swelling on Lasix, history of lower GI bleed from hemorrhoids, degenerative joint disease, gout, osteoarthritis, hypothyroidism, depression, constipation was brought to the emergency department this evening from [facility] after an unwitnessed fall around 4pm. Patient is confused, not oriented to time place and person, couldn't provide any history. Most of the information was provided by nurse Anuja who took care of the patient at [facility] for 2days. VITALS ON ADMISSION-afebrile, heart rate 100, respiratory rate 18, blood pressure 188/95, saturating at 95% on room air. Pertinent labs on Admission- Leukocytosis 20.6, BEP NORMAL. cxr- Limited exam secondary to patient positioning. Pulmonary hypoinflation and bronchovascular crowding. Prominence of the cardiac and mediastinal silhouettes. This may be secondary to technique or it may represent cardiomegaly with associated prominence of the mediastinum. Consider correlation with a dedicated PA and lateral chest x-ray. hip xray- Intertrochanteric fracture of the right hip. ct head- normal Problem list 1. Intertrochanteric fracture of the right hip. 2. Atrial fibrillation 3. Hypertension 4. Hyperlipidemia 5. Chronic venous insufficiency 6. Lower extremity edema 7. Gout 8. Constipation 9. Hypothyroidism 10. Depression Intertrochanteric fracture of right hip according to the nurse, She was on her wheel chair, she fell down on to the floor from seated Position, which was an unwitnessed fall. She denied hitting head, denied loss of consciousness. She complains of right hip pain after fall/ 07/14. Patient also complains of right knee pain. She is afebrile with leukocyte count 12.6. X-ray suggestive of intertrochanteric right hip fracture. * Admitted to general medicine floor for medical and cardiac clearance * Monitor vitals closely every shift * Maintain oxygen saturation above 90% * Fall precautions * Pain management * Lidocaine patch * [id number] Tylenol * Severe pain - morphine * Gentle IV hydration * We'll hold her warfarin for anticipated surgical procedure-she may need open reduction and internal fixation. Calculated RCR INDEX- not in acute congestive heart failure, no history of stroke, not diabetic, creatinine less than 2, open reduction and internal fixation- LESS RISK SURGERY, no history of ischemic heart disease-risk of major cardiac event 0.4%. * Need to get permission from family member or conservative who is in charge her for care to proceed with the surgery stated above if desired. Atrial fibrillation EKG on admission showed atrial fibrillation, rate 102. Patient is on Cardizem 240 mg extended release. She is on Coumadin 2.5 mg * Continue Cardizem * Hold her warfarin for anticipated surgery Hypertension -Diltiazem CD 240mg PO Daily -Lisinopril 20mg PO BID, hold lisinopril -Metoprolol Succinate 25mg PO daily Constipation -Colace 100mg PO BID -Milk of Magnesia PRN Coronary Artery Disease- Aspirin 81mg PO Daily Hypothyroidism- Synthroid 100mcg PO Daily Depression- Lexapro 5mg PO daily Gout- Allopurinol 100mg PO Daily Chronic Lower extremity swelling- Furosemide 20mg PO Daily We'll hold Lasix for now Pain Plan- Acetaminophen/LIDOCAINE/morphine Diet- npo DVT PPx- ALPS Code Status - FULL CODE As Ranked By This Provider Problem List: 1. Acute right hip pain 2. Fracture, intertrochanteric, right femur Core Measures/Miscellaneous Acute Coronary Syndrome ACS Diagnosis: No Cerebrovascular Accident CVA/TIA Diagnosis: No Congestive Heart Failure CHF Diagnosis: No Venous Thromboembolism VTE Risk Factors: Age > 40 No [facility] VTE prophylaxis d/t: No contraindications No VTE Pharm Prophylaxis d/t: No contraindications VTE Diagnosis: No VTE Type: NONE VTE Confirmed by (Test): NONE Severe Sepsis Severe Sepsis Present: No Septic Shock Septic Shock Present: No Miscellaneous Documentation Attending Case Discussed With: YULIYA SYLVESTER MD Primary Care Physician: LUIS THOMAS MD Patient sees these Specialists NONE Level of Patient Care: General Medicine OBED HAIR 02/05/17 0144: Resident Review Statement Other Findings: Mrs. Rehman is an 86 year old female w a past medical history of atrial fibrillation on Coumadin anticoagulation, depression, GI bleed (hemorrhoids), HTN and hypothyroidism who presents to the hospital emergency department from [facility] after a fall. The patient is quite confused and unable to give any history, and therefore most of the history was obtained from the emergency department staff and from [facility]. Of note, multiple unsuccessful attempts were made to reach the patient's family members by all 3 members of the medical team. She previously visited the emergency department complaining of knee pain, and radiographic investigations of the knee were negative. She was discharged [facility] for rehabilitation, and as stated above presents today for a witnessed fall. Review of systems and physical exam as dictated above with focus on severe tenderness of the right hip, femur and knee. No significant bruising noted. Vitals stable. EKG revealed atrial fibrillation at a rate of 10 2 bpm, questionable incomplete right bundle branch block and left anterior fascicular block, with T-wave in lead 3, V1 through V5. The remainder of the labs as dictated above, INR 1.7. Imaging was significant for a right intertrochanteric fracture of the hip. Negative head CT. Problem list/assessment and plan We will admit the patient to the general medicine floor for management of the following problems: Right intertrochanteric fracture * Patient has been seen by Dr. Oh, and will go to the OR for an ORIF tomorrow once the patients family can be reached. The patient is not of sound mind at the moment to decide for herself regarding surgery given her mental status. * RSRI score is 0 - class 1 risk putting her at a low risk for major cardiac event, approximately 0.4%, in a low risk procedure. * We will keep the pt NPO, hydrate gently with NS at 75cc/h, * Pain management with IV tylenol and IV morphine 2mg q4h PRN for severe pain. Atrial fibrillation * Hold coumadin * Recheck INR in the am * If the patient contiues to have elevated INR and will go to the OR, consider vitamin K or FFP. * Continue home dose of diltazem 240 CD, metoprolol 25 XL. Hypertension/hyperlipidemia/Gout/depression * Continue home meds and doses as dictacted above except lisinopril and lasix. Additionally, we will give haldol 0.5-1mg q6h PRN for agitation FULL CODE ALPS for DVT ppx - no heparin/lovenox NPO pain path as ordered. YULIYA SYLVESTER 02/05/17 0204: Attending MD Review Statement Attending Statement Attending MD Statement: examined this patient, discuss w/resident/PA/ORGANIC LAB WORKER, agreed w/resident/PA/ORGANIC LAB WORKER, reviewed EMR data (avail), reviewed images, amended to note Attending Assessment/Plan: Cc fall PMH: OA, HLD, HTN, depression, hypothyroidism, A. fib Patient is pleasantly demented and does not provide any history, not oriented in time and place only oriented to self. History obtain from senior care, where patient had unwitnessed fall from wheelchair, no loss of consciousness or head trauma. Off note patient was in ER on February 01 for knee pain, she was living at assisted living at that time, patient was considered unfit to live by herself and was needing assistance in ambulation so she was placed in senior care from ER 2 days back, patient has baseline disorientation, and fell down in senior care as mentioned above. Try to call family several times without success. Mild tachycardia otherwise vitals unremarkable On exam: Alert not oriented in no acute distress, cooperative, neck supple, JVD normal, no lymphadenopathy, mucosa dry, no dependent edema, no obvious skin rashes or inflammation or breakdowns CVS: S1-S2, irregular. RS: Clear to auscultate bilaterally. Abdomen: Soft, NT, ND, bowel sounds present. Bony tenderness on right hip, peripheral pulses perfusion normal. Labs: WBC 12.6, hemoglobin 13.4, hematocrit 40.7, BUN 23, creatinine 0.6, glucose 109, alkaline phosphatase 163, troponin less than 0.01, INR 1.7 EKG: A. fib X-ray pelvis, hip, CT head, chest x-ray 1. Intertrochanteric fracture of the right hip. 2. No intracranial hemorrhage. Age-related volume loss and microvascular ischemic changes. 3. Limited exam secondary to patient positioning. Pulmonary hypoinflation and bronchovascular crowding. Prominence of the cardiac and mediastinal silhouettes. This may be secondary to technique or it may represent cardiomegaly with associated prominence of the mediastinum. Consider correlation with a dedicated PA and lateral chest x-ray. A and P Patient had unwitnessed fall, ?Head trauma, CT head negative. She is found to have intertrochanteric fracture of right hip, orthopedic is involved. Patient might require surgery but patient is severely demented and not oriented, no history is available from charts regarding cardiovascular risk factors, I personally called the family and left message, resident and sales and marketing intern all family several times as well without response. In this situation, deciding goal of care , providing details of previous medical problems and consenting for the procedure remains unclear. Patient is on warfarin for A. fib, warfarin will be held for the procedure but again at the same time she has high risk for stroke, risks and benefits could not be discussed with her or family. - Unwitnessed fall - Right intertrochanteric femur fracture - History of HTN, A. fib, hypothyroidism + Admit to medical floor + Gentle hydration + Nothing by mouth after midnight + Hold warfarin, check INR in a.m., + Try to contact family again in a.m. to discuss goal of care + Continue Synthroid, Lexapro, diltiazem, metoprolol, pain management, bowel regimen + From brief history available from senior care chart and previous hospitalization patient appears to be low risk for surgery, but would benefit from cardiology consult for cardiac clearance + DVT prophylaxis Alps + Hold Lasix and lisinopril, reassess to resume lisinopril after surgery.
--- NOTE | 2017-02-04 21:34 | NUR ---
NURSING NOTE: PT ARRIVED TO FLOOR FROM ED VIA STRETCHER BY DISTRIBUTION. PT IS ALERT TO PERSON BUT IS CONFUSED TO PLACE AND TIME. PT ON RA, NO DISTRESS NOTED. JASSO PLACED IN ED, PATENT, DRAINING CLEAR, ORANGE IN COLOR. PT C/O PAIN W/ MOVEMENT IN R HIP 10/10 PER PT. SKIN INTACT, SIZEWISE BED ORDERED. BED ORDERED. PT SHOWN HOW TO USE CALL LIGHT SYSTEM. AWAIT FURTHER ORDERS FROM MD. WILL CONTINUE TO MONITOR.
[2017-02-04 22:01] VITALS: BP 142/86
--- NOTE | 2017-02-04 23:40 | Cons- Orthopedic ---
General Information and HPI Consulting Request Date of Consult: 02/04/17 Requested By: YULIYA SYLVESTER MD Reason for Consult: right hip fracture Source of Information: W10 Exam Limitations: dementia History of Present Illness: Ms. REHMAN is an 86-year-old female resident of an area senior care was brought in by ambulance after an unwitnessed fall. She was found on the floor however responsive complaining of 10 out of 10 right thigh pain. She was unable to ambulate after the fall just past medical history of A. fib hypertension hyperlipidemia depression hypothyroidism and is currently on Coumadin therapy for her A. fib. X-rays taken in the emergency room demonstrate a right intratrochanteric hip fracture requiring surgical fixation for ambulation. Due to her dementia is unable to get a complete history from this patient. The majority of her medical information was obtained from her W 10 Allergies/Medications Allergies: Coded Allergies: No Known Allergies (01/24/17) Home Med List: Acetaminophen (Pain Reliever) 500 MG CAPSULE 1 TAB PO Q6 PRN PAIN (Reported) Allopurinol 100 MG TABLET 1 TAB PO DAILY GOUT (Reported) Aspirin (Ecotrin*) 81 MG TABLET.DR 1 TAB PO DAILY HEART (Reported) Diltiazem HCl (Diltiazem 24HR ER) 240 MG CAP.ER.24H 1 CAP PO DAILY AFIB/ HYPERTENSION (Reported) Docusate Sodium (Colace) 100 MG CAPSULE 1 CAP PO BID CONSTIPATION (Reported) Escitalopram Oxalate (Lexapro) 5 MG TABLET 1 TAB PO DAILY DEPRESSION ( Reported) Furosemide 20 MG TABLET 1 TAB PO DAILY LOWER EXTREMITY SWELLING (Reported) Levothyroxine Sodium 100 MCG TABLET 1 TAB PO DAILY AC THYROID (Reported) Lisinopril 20 MG TABLET 1 TAB PO BID HYPERTENSION (Reported) Metoprolol Succinate 25 MG TAB 1 TAB PO DAILY AFIB/HTN (Reported) Polyethylene Glycol 3350 (Miralax) 17 GRAM POWD.PACK 1 PAC PO DAILY CONSTIPATION dissolve in water Potassium Chloride (Klor-Con M20) 20 MEQ TAB.ER.PRT 1 TAB PO DAILY HYPOKALEMIA (Reported) Sennosides/Docusate Sodium (Senokot-S Tablet) 8.6 MG-50 MG TABLET 1 TAB PO BID CONSTIPATION Tramadol HCl 50 MG TABLET 1 TAB PO TIDPRN PAIN (Reported) Warfarin Sodium (Coumadin) 2.5 MG TABLET 1 TAB PO DAILY AFIB (Reported) Past History Medical History Blood Transfusion Hx: No Neurological: NONE EENT: NONE Cardiovascular: AFIB, chronic venous insuff, hypertension, hyperlipidemia Respiratory: NONE Gastrointestinal: lower GI bleed Hepatic: NONE Renal: NONE Musculoskeletal: degen joint disease, falls, gout, osteoarthritis Psychiatric: depression Endocrine: hypothyroidism Blood Disorders: NONE Cancer(s): NONE 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 FH: colon cancer Psychosocial History Where Do You Live? Shelter Facility Who Do You Live With? self Services at Home: Home Health Aide, Nursing Primary Language: Guinean Smoking Status: Never Smoked ETOH Use: occasional use Illicit Drug Use: denies illicit drug use Functional Ability ADLs Needs Assist: dressing, eating, toileting, bathing. Ambulation: walker IADLs Independent: telephone. Needs Assist: shopping, housework, finances, food prep, transportation, medication admin. Exam & Diagnostic Data Vital Signs and I&O Vital Signs Date Time Temp Pulse Resp B/P B/P Pulse O2 O2 Flow FiO2 Mean Ox Delivery Rate 02/04 2201 98.6 104 18 142/86 95 Room Air 02/05 2012 97.8 108 18 138/82 94 Room Air 02/04 1701 98.0 100 18 188/95 95 Room Air Physical Exam General Appearance: cachetic, mild distress, thin Head: atraumatic Eyes: Bilateral: normal appearance. Respiratory: normal breath sounds Cardiovascular: regular rate/rhythm Gastrointestinal: normal bowel sounds, soft Extremities: right lower extremity is shortened and externally rotated, pulses are intact, the right leg is warm. All other extremities are unremarkable Last 24 Hours of Labs: Laboratory Tests 02/04 1731 Chemistry Sodium (137 - 145 mmol/L) 136 L Potassium (3.5 - 5.1 mmol/L) 4.0 Chloride (98 - 107 mmol/L) 96 L Carbon Dioxide (22 - 30 mmol/L) 25 Anion Gap (5 - 16) 15 BUN (7 - 17 mg/dL) 23 H Creatinine (0.5 - 1.0 mg/dL) 0.6 Estimated GFR (>60 ml/min) > 60 BUN/Creatinine Ratio (7 - 25 %) 38.3 H Glucose (65 - 99 mg/dL) 109 H Calcium (8.4 - 10.2 mg/dL) 9.4 Total Bilirubin (0.2 - 1.3 mg/dL) 1.1 AST (14 - 36 U/L) 34 ALT (9 - 52 U/L) 47 Alkaline Phosphatase (<127 U/L) 163 H Troponin I (< 0.11 ng/ml) < 0.01 Total Protein (6.3 - 8.2 g/dL) 6.6 Albumin (3.5 - 5.0 g/dL) 3.7 Globulin (1.9 - 4.2 gm/dL) 2.9 Albumin/Globulin Ratio (1.1 - 2.2 %) 1.3 Coagulation PT (9.4 - 12.5 SEC) 17.8 H INR (0.90 - 1.19) 1.70 H APTT (25 - 37 SEC) 31 Hematology CBC w Diff NO MAN DIFF REQ WBC (4.8 - 10.8 /CUMM) 12.6 H RBC (4.20 - 5.40 /CUMM) 4.50 Hgb (12.0 - 16.0 G/DL) 13.4 Hct (37 - 47 %) 40.7 MCV (81.0 - 99.0 FL) 90.4 MCH (27.0 - 31.0 PG) 29.8 RDW (11.5 - 14.5 %) 13.5 Plt Count (130 - 400 /CUMM) 359 MPV (7.4 - 10.4 FL) 9.4 Gran % (42.2 - 75.2 %) 78.5 H Lymphocytes % (20.5 - 51.1 %) 9.2 L Monocytes % (1.7 - 9.3 %) 11.6 H Eosinophils % (0 - 5 %) 0.3 Basophils % (0.0 - 2.0 %) 0.4 Absolute Granulocytes (1.4 - 6.5 /CUMM) 9.9 H Absolute Lymphocytes (1.2 - 3.4 /CUMM) 1.2 Absolute Monocytes (0.10 - 0.60 /CUMM) 1.5 H Absolute Eosinophils (0.0 - 0.7 /CUMM) 0 Absolute Basophils (0.0 - 0.2 /CUMM) 0.1 PUBS MCHC (33.0 - 37.0 G/DL) 33.0 Imaging Results: SERVICE DATE: 02/04/17 EXAM TYPE: RAD - XRY-AP PELVIS; XRY-HIP 2-3 VIEWS, RIGHT EXAMINATION: 1. XR PELVIS 2. XR HIP, RIGHT CLINICAL INFORMATION: Right hip pain after fall COMPARISON: CT abdomen and pelvis 01/24/2017 TECHNIQUE: AP view of the pelvis and 2 views of the right hip FINDINGS: Pelvic ring is intact. Sacroiliac joints are symmetric. Degenerative changes of the lower lumbar spine. Intertrochanteric fracture of the right hip with coxa vara angulation. The femoral head remains well-seated within the acetabulum. Vascular calcifications are noted. IMPRESSION: Intertrochanteric fracture of the right hip. DICTATED BY: NANCY CHILDRESS MD DATE/TIME DICTATED:02/04/171830 BEVEL GEAR GENERATOR OPERATOR:JAELYN DATE/TIME TRANSCRIBED:02/04/171830 Assessment/Plan Assessment/Plan Mrs. Rehman is a 6-year-old female resident of area senior care who presents with right intertrochanteric hip fracture after unwitnessed fall. Due to the patient's dementia a full physical exam and history could not be obtained. She has a fracture such that it will require surgical fixation for at the very least comfort and at most weightbearing on this right lower extremity. She has family members need to be contacted and Dr. Oh is aware of this. In the interim she'll be admitted to the medical service for medical clearance and probable cardiac clearance. She is also currently on Coumadin with an INR of 1.7 which should drift down for a day or so until the INR is within surgical limits for open reduction internal fixation of right hip fracture. We will follow this patient closely with you Dr. Cueto will be the orthopedic attending of record for this patient we will await medical cardiac clearance and permission from family member or conservative who is in charge her for care to proceed with the surgery stated above if desired. Consult Acknowledgment - Thank you for your consult request.
--- NOTE | 2017-02-05 02:08 | Admission Certification ---
Admission Certification Certification Statement - As attending physician, I certify that at the time of - admission, based on clinical presentation, severity of - symptoms, need for further diagnostic testing and - therapeutic interventions, and risk of adverse outcomes - without in-hospital treatment, in my clinical assessment, - this patient requires an acute hospital stay for a minimum - of two nights or longer. I have also considered psychsocial - factors such as support system, advanced age, financial - issues, cognitive issues, and failed out-patient treatments, - past re-admission history, safety of patient, and lack of - compliance as applicable. Specific rationale supporting this admission is: Intertrochanteric fracture right femur
[2017-02-05 06:15] VITALS: BP 136/82
--- NOTE | 2017-02-05 08:01 | PN- Housestaff ---
MICHELLE SALAS,MOJGAN 02/05/17 0758: Subjective Follow-up For: Hip fracture Subjective: Spoke with Daughter in law Lizzie around 7:30 am this morning. Pt is confused and unable to make decisions regarding her surgery. Lizzie was updated regarding diagnosis and status of patient. She stated that she wished to speak with the rest of the family members regarding conservative vs non-conservative management of the intertrochanteric hip fracture. Review of Systems Constitutional: Reports: no symptoms. Objective Last 24 Hrs of Vital Signs/I&O Vital Signs Date Time Temp Pulse Resp B/P B/P Pulse O2 O2 Flow FiO2 Mean Ox Delivery Rate 02/05 615 98.3 93 20 136/82 94 Room Air 02/04 2201 98.6 104 18 142/86 95 Room Air 02/05 2012 97.8 108 18 138/82 94 Room Air 02/04 1701 98.0 100 18 188/95 95 Room Air Intake & Output 02/05 1600 02/05 0800 02/05 0000 Intake Total 600 290 Output Total 350 Balance 250 290 Intake, IV 600 200 Intake, Oral 0 90 Output, Urine 350 Patient 61.235 kg Weight Weight Estimated Measurement Method Physical Exam General Appearance: Alert, Mild Distress Skin: No Rashes HEENT: Atraumatic, PERRLA, EOMI Neck: Supple Cardiovascular: irregularly irregular tachycardic Lungs: Normal Air Movement Abdomen: Soft, No Tenderness Neurological: ao x 0; speech confused and rambling. No slurring. Extremities: No Cyanosis, No Edema, Normal Pulses, exquisitely tender to r. hip palpation. Has a scab and bruise on r. knee Current Medications: Current Medications Sig/Tatyana Start time Last Medication Dose Route Stop Time Status Admin Acetaminophen 1,000 MG .STK-MED ONE 02/05 0205 DC IV 02/05 0206 Acetaminophen 650 MG Q6P PRN 02/04 2115 AC PO Acetaminophen 1,000 MG Q6P PRN 02/04 2115 AC 02/05 IV 0937 Allopurinol 100 MG DAILY 02/05 1000 AC PO Dextrose/Sodium 1,000 ML Q13H 02/05 0815 AC 02/05 Chloride IV 0814 Diazepam 3 MG ONCE ONE 02/04 1815 DC 02/04 IV 02/04 181 1806 Diazepam 0 .STK-MED ONE 02/04 180 DC .ROUTE Diltiazem HCl 240 MG DAILY 02/05 1000 AC PO Docusate Sodium 100 MG BID 02/04 2200 AC 02/05 PO 0022 Escitalopram Oxalate 5 MG DAILY 02/05 1000 AC PO Haloperidol 0.5 MG FOUR TIMES A DAY PRN 02/04 2300 AC PO Levothyroxine Sodium 0.1 MG DAILY AC 02/05 0700 AC 02/05 PO 0529 Lidocaine 1 PAT Q24H 02/04 2115 AC 02/05 EXT 0018 Metoprolol Succinate 25 MG DAILY 02/05 1000 AC PO Morphine Sulfate 2 MG Q4P PRN 02/04 2115 AC 02/05 IV 0725 Morphine Sulfate 0 .STK-MED ONE 02/04 1850 DC .ROUTE Morphine Sulfate 2 MG ONCE ONE 02/04 184 DC 02/04 IV 02/04 184 1848 Morphine Sulfate 0 .STK-MED ONE 02/04 1711 DC .ROUTE Morphine Sulfate 2 MG ONCE ONE 02/04 1700 DC 02/04 IV 02/04 1701 1720 Polyethylene Glycol 17 GM DAILY 02/05 1000 AC PO Senna/Docusate Sodium 1 TAB BID 02/04 2200 AC 02/05 PO 0022 Sodium Chloride 1,000 ML .[id number] 02/04 2115 DC 02/04 IV 02/05 1034 2152 Last 24 Hrs of Lab/Garrick Results Last 24 Hrs of Labs/Mics: Laboratory Tests 02/05/17 0626: Anion Gap 11, Estimated GFR > 60, BUN/Creatinine Ratio 34.0 H, PT 19.5 H, INR 1.87 H, CBC w Diff NO MAN DIFF REQ, RBC 3.98 L, MCV 90.1, MCH 29.5, RDW 12.4, MPV 9.1, Gran % 81.0 H, Lymphocytes % 8.2 L, Monocytes % 10.4 H, Eosinophils % 0.1, Basophils % 0.3, Absolute Granulocytes 8.8 H, Absolute Lymphocytes 0.9 L, Absolute Monocytes 1.1 H, Absolute Eosinophils 0, Absolute Basophils 0, PUBS MCHC 32.8 L 02/04/17 1731: Anion Gap 15, Estimated GFR > 60, BUN/Creatinine Ratio 38.3 H, Glucose 109 H, Calcium 9.4, Total Bilirubin 1.1, AST 34, ALT 47, Alkaline Phosphatase 163 H, Troponin I < 0.01, Total Protein 6.6, Albumin 3.7, Globulin 2.9, Albumin/ Globulin Ratio 1.3, PT 17.8 H, INR 1.70 H, APTT 31, CBC w Diff NO MAN DIFF REQ , RBC 4.50, MCV 90.4, MCH 29.8, RDW 13.5, MPV 9.4, Gran % 78.5 H, Lymphocytes % 9.2 L, Monocytes % 11.6 H, Eosinophils % 0.3, Basophils % 0.4, Absolute Granulocytes 9.9 H, Absolute Lymphocytes 1.2, Absolute Monocytes 1.5 H, Absolute Eosinophils 0, Absolute Basophils 0.1, PUBS MCHC 33.0 Microbiology 02/04 1737 URINE ROUT: Urine Culture - RES Assessment/Plan Assessment: This is a 86-year-old female with past medical history significant for atrial fibrillation on warfarin, hypertension, hyperlipidemia, chronic venous insufficiency, LE edema on Lasix, hemorrhoids, DJD, gout, OA, hypothyroidism, depression, constipation with CC unwitnessed fall. Patient couldn't provide any history 2/2 AO x 0. VITALS ON ADMISSION: afebrile, HR 100, RR 18, BP 188/95, 95% on room air. Leukocytosis 20.6, BEP NORMAL. Hip xray- Intertrochanteric fracture of the right hip. Ct head- normal PLAN: Intertrochanteric fracture of right hip: Pt had unwitnessed fall from seated position to floor. NO head trauma or LOC. Has 10/10 R. hip pain and knee pain. X -ray suggestive of intertrochanteric right hip fracture. Pt has previous hx of BRBPR in January 2017, at that time most likely 2/2 anticoagulant + hemorrhoids; however, cannot rule out minor diverticular bleed or ulceration etc.Family is currently unsure if they want to proceed with surgical intervention. They wanted cardiac clearance and stated they would have a family meeting and get back to primary team around 9-10am. * Maintain oxygen saturation above 92% * Fall precautions * Pain management * Gentle IV hydration * Hold her warfarin for anticipated surgical procedure- * Calculated RCR INDEX- risk of major cardiac event 0.4%. * Thank you ortho recs * Thank you cardiac recs * NPO in anticipation of surgery Atrial fibrillation: Chronic and stable * EKG on admission showed atrial fibrillation, rate 102. * Patient is on Cardizem 240 mg extended release. * HOLD COUMADIN * Continue Cardizem Hypertension: Chronic and stable * Diltiazem CD 240mg PO Daily * Lisinopril 20mg PO BID, hold lisinopril * Metoprolol Succinate 25mg PO daily Constipation * Colace 100mg PO BID * Milk of Magnesia PRN Coronary Artery Disease- * Aspirin 81mg PO Daily Hypothyroidism- * Synthroid 100mcg PO Daily Depression- * Lexapro 5mg PO daily Gout- * Allopurinol 100mg PO Daily Chronic Lower extremity swelling- * Furosemide 20mg PO Daily--HOLD LASIX Diet- npo DVT PPx- ALPS Code Status - FULL CODE Problem List: 1. Fracture, intertrochanteric, right femur Pain Ratin Pain Location: r. hip Pain Goal: Pain 4 or less Pain Plan: urrent reg Tomorrow's Labs & Rationales: cbc bep ABAD GALVAN 02/05/17 1132: Attending MD Review Statement Attending Statement Attending MD Statement: examined this patient, discuss w/resident/PA/CERAMIST, agreed w/resident/PA/CERAMIST, discussed with family, reviewed EMR data (avail), discussed with nursing, discussed with case mgmt, reviewed images, amended to note Attending Assessment/Plan: ASSESSMENT - Unwitnessed fall - Right intertrochanteric femur fracture - History of HTN, A. fib, hypothyroidism - Right hip pain - toxic metabolic encephalopathy PLAN admit to inpatient medical services, low threshold to transfer tele. NPO, IVF, cardio consult, c/w home meds for rate control. Coumadin on hold for anticipated surgery. pain control , bowel regimen. orthopedics consult for ORIF. benefits outweigh risks. family meeting planned. gi/dvt prophyalxis, skin and fall precautions. Patient is medically stable for surgery. Cardio noted.
[2017-02-05 08:26] LABS: PT 19.5 SEC (9.4-12.5)
[2017-02-05 08:28] LABS: ABSOLUTE BASOPHIL COUNT 0 /CUMM (0.0-0.2); ABSOLUTE EOSINOPHIL COUNT 0 /CUMM (0.0-0.7); ABSOLUTE GRANULOCYTE CT 8.8 /CUMM (1.4-6.5); ABSOLUTE LYMPH COUNT 0.9 /CUMM (1.2-3.4); ABSOLUTE MONOCYTE COUNT 1.1 /CUMM (0.10-0.60); BASOPHIL % 0.3 % (0.0-2.0); EOSINOPHIL % 0.1 % (0-5); HEMATOCRIT 35.8 % (37-47); MEAN CORPUSCULAR HGB 29.5 PG (27.0-31.0); MEAN CORPUSCULAR HGB CONC 32.8 G/DL (33.0-37.0); MEAN CORPUSCULAR VOLUME 90.1 FL (81.0-99.0); MEAN PLATELET VOLUME 9.1 FL (7.4-10.4); PLATELET COUNT 334 /CUMM (130-400); RBC DISTRIBUTION WIDTH 12.4 % (11.5-14.5); RED BLOOD CELL CT 3.98 /CUMM (4.20-5.40); WHITE BLOOD CELL COUNT 10.9 /CUMM (4.8-10.8)
--- NOTE | 2017-02-05 10:10 | Cons- Cardiology ---
General Information and HPI Consulting Request Date of Consult: 02/05/17 Requested By: YULIYA SYLVESTER MD History of Present Illness: Ms. Barahona is an 86 year old female with history of hypertension, hyperlipidemia and atrial fibrillation on Coumadin. She also carries a history of osteoarthritis. This patient was recently admitted to [facility] for knee and shoulder pain. She subsequently went to [facility] for rehab. Yesterday, this patient had a unwitnessed fall in which she fell from a wheelchair onto the floor. She now complains of right hip pain and was discovered to have an intertrochanteric hip fracture. This patient had been living in an assisted living facility up until a short time ago. She was not very active but as far as can be discerned has not had any recent cardiac events. She denies chest discomfort, shortness of breath, lightheadedness or palpitations. Allergies/Medications Allergies: Coded Allergies: No Known Allergies (01/24/17) Home Med List: Acetaminophen (Pain Reliever) 500 MG CAPSULE 1 TAB PO Q6 PRN PAIN (Reported) Allopurinol 100 MG TABLET 1 TAB PO DAILY GOUT (Reported) Aspirin (Ecotrin*) 81 MG TABLET.DR 1 TAB PO DAILY HEART (Reported) Diltiazem HCl (Diltiazem 24HR ER) 240 MG CAP.ER.24H 1 CAP PO DAILY AFIB/ HYPERTENSION (Reported) Docusate Sodium (Colace) 100 MG CAPSULE 1 CAP PO BID CONSTIPATION (Reported) Escitalopram Oxalate (Lexapro) 5 MG TABLET 1 TAB PO DAILY DEPRESSION ( Reported) Furosemide 20 MG TABLET 1 TAB PO DAILY LOWER EXTREMITY SWELLING (Reported) Levothyroxine Sodium 100 MCG TABLET 1 TAB PO DAILY AC THYROID (Reported) Lisinopril 20 MG TABLET 1 TAB PO BID HYPERTENSION (Reported) Metoprolol Succinate 25 MG TAB 1 TAB PO DAILY AFIB/HTN (Reported) Polyethylene Glycol 3350 (Miralax) 17 GRAM POWD.PACK 1 PAC PO DAILY CONSTIPATION dissolve in water Potassium Chloride (Klor-Con M20) 20 MEQ TAB.ER.PRT 1 TAB PO DAILY HYPOKALEMIA (Reported) Sennosides/Docusate Sodium (Senokot-S Tablet) 8.6 MG-50 MG TABLET 1 TAB PO BID CONSTIPATION Tramadol HCl 50 MG TABLET 1 TAB PO TIDPRN PAIN (Reported) Warfarin Sodium (Coumadin) 2.5 MG TABLET 1 TAB PO DAILY AFIB (Reported) Review of Systems Review of Systems: arthritic pain Past History Travel History Traveled to [place] past 21 day No Medical History Blood Transfusion Hx: No Neurological: NONE EENT: NONE Cardiovascular: AFIB, chronic venous insuff, hypertension, hyperlipidemia Respiratory: NONE Gastrointestinal: lower GI bleed Hepatic: NONE Renal: NONE Musculoskeletal: degen joint disease, falls, gout, osteoarthritis Psychiatric: depression Endocrine: hypothyroidism Blood Disorders: NONE Cancer(s): NONE 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 FH: colon cancer Psychosocial History Where Do You Live? Longterm Facility Who Do You Live With? self Services at Home: Home Health Aide, Nursing Primary Language: Singaporean Smoking Status: Never Smoked ETOH Use: occasional use Illicit Drug Use: denies illicit drug use Functional Ability ADLs Needs Assist: dressing, eating, toileting, bathing. Ambulation: walker IADLs Independent: telephone. Needs Assist: shopping, housework, finances, food prep, transportation, medication admin. Exam & Diagnostic Data Vital Signs and I&O Vital Signs Date Time Temp Pulse Resp B/P B/P Pulse O2 O2 Flow FiO2 Mean Ox Delivery Rate 02/05 0615 98.3 93 20 136/82 94 Room Air 02/04 2201 98.6 104 18 142/86 95 Room Air 02/05 2012 97.8 108 18 138/82 94 Room Air 02/04 1701 98.0 100 18 188/95 95 Room Air Intake & Output 02/05 1600 02/05 0800 02/05 0000 02/04 1600 02/04 0800 02/04 0000 Intake Total 600 290 Output Total 350 Balance 250 290 Intake, IV 600 200 Intake, Oral 0 90 Output, Urine 350 Patient 135 lb Weight Weight Estimated Measurement Method Physical Exam: General: WD/ WN female in NAD; awake and confused with decreased memory HEENT: NC/ AT, PERRL, EOMI Neck: no JVD, no carotid bruit Heart: irregularly irregular Lungs: clear bilaterally Abdomen: soft, NT, +ve bowel sounds Extremities: no edema in lower legs, right knee is swollen Diagnostic Data EKG Results 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 There are no acute ischemic changes on her ECG and troponin is normal. She is a reasonable candidate for knee surgery if this is pursued. For now I would hold her Coumadin and allow it to drift down. She is only mildly therapeutic at this point in time. The patient has been on Diltiazem and Toprol for rate control but has refused to take her medications and is becoming mildly tachycardic. If she does not take her medications then begin Lopressor 5mg IV Q 6 hours for rate control. If additional rate control is needed then IV cardizem may also be started. Consult Acknowledgment - Thank you for your consult request.
--- NOTE | 2017-02-05 11:03 | Event Note ---
Event Note Event Note: 7:30 AM I called and spoke with Daughter in law Lizzie this morning as pt is confused and unable to make decisions regarding her surgery. Lizzie was updated regarding diagnosis and status of patient. She stated that she wished to speak with the rest of the family members regarding conservative vs non-conservative management of the intertrochanteric hip fracture. Initially, she seemed to think that patient would be less likely to choose surgical intervention as she had previously refused knee surgery. They requested input from cardiology and attending regarding risks and benefits of surgery. 10:45 AM I called Lizzie and her Josue again to update them regarding cardiology clearance and morbidity/mortality of hip fractures in the elderly. She stated that the family is likely leaning TOWARDS a surgical intervention given the updates. However, a daugter of the patient was going to come in later in the afternoon and make the final decision. I informed her regarding the importance of a speedy consensus as an OR time had to be secured. She stated that she would speak with patient and family once again and get back to me. 12:00 pm: Family on board with surgery. Scheduled to OR today at 5 PM. Consent obtained.
[2017-02-05 14:05] VITALS: BP 160/94
--- NOTE | 2017-02-05 18:56 | NUR ---
AT THIS TIME PT DOWN TO THE OR IN STRETCHER, OR CHECKLIST COMPLETED, SCRUB DONE, WILL CONT TO MONITOR.
--- NOTE | 2017-02-05 20:53 | Operative Report ---
Operative/Inv Procedure Report Surgery Date: 02/05/17 Name of Procedure: Intramedullary rodding of the right femur Pre-Operative Diagnosis: Right intertrochanteric hip fracture Post-Operative Diagnosis: Right intertrochanteric hip fracture Estimated Blood Loss: 50ml to 100ml Surgeon/Sumac Tanner: lola oh Anesthesia: laryngeal mask airway Operative/Procedure Note Note: The patient was brought to the operating room and given a general anesthetic while in her bed. She received 2 g of Kefzol antibiotics. She was then gently transferred to the fracture table and placed in longitudinal traction. Preoperative x-rays and fluoroscopy showed an anatomic reduction on the table of her intratrochanteric right hip fracture. The right hip was then prepped and draped in usual sterile fashion. We did do an appropriate timeout prior to procedure indicate the right hip was indeed the operative hip. Using a small incision about 3 cm in length above the greater trochanter and this was carried down through the fascia to the trochanter. Using a guidewire was placed down the femoral canal verified on AP and lateral fluoroscopic pictures. Appropriate initial opening reamer was then carried out. The implants placed was a 10 x 170 mm x 1 30 angle trochanteric nail using the gamma system. The appropriate 95 mm lag screw was placed. Distal locking screw was placed. Using a 5.0x35 mmscrew. Final x-rays were taken showing an anatomic reduction of the intratrochanteric hip fracture with the implant perfectly placed. Thorough irrigation was carried out of the wounds then were closed in layers dry sterile dressings were applied and she was sent back to recovery room in stable condition all complications and a dictation all needle and initially counts were correct thank you Dr. Oh
--- NOTE | 2017-02-05 21:52 | NUR ---
AT THIS TIME PT ARRIVED FROM PACU TO , BLOOD PRESSURE-128/84, TEMPERATURE-97.7, 95% ON 3LNC, PULSE-83, RESPIRATIONS-18, PT ALERT AND CONFUSED BUT PLEASANT, DENIES CP, DENIES SOB, DSG TO R HIP C/D/I, JASSO DRAINING YELLOW CLEAR URINE, IVF RUNNING PER EMAR, PT ORIENTED TO ROOM AND CALL JAVIER, BED IN LOCKED LOWEST POSITION, WILL CONT TO MONITOR.
--- NOTE | 2017-02-05 21:58 | PN- Orthopedic ---
Subjective Subjective: The patient was seen this evening postoperatively. She was sleepy but arousable and appeared comfortable. She had no complaints at the current time and denied any current discomfort. Objective Vital Signs and I&Os Vital Signs Date Time Temp Pulse Resp B/P B/P Pulse O2 O2 Flow FiO2 Mean Ox Delivery Rate 02/05 1405 160/94 02/05 1405 98.2 93 20 94 / 1222 108 130/80 02/05 1128 Room Air 02/05 1102 Room Air 02/05 0615 98.3 93 20 136/82 94 Room Air 02/04 2201 98.6 104 18 142/86 95 Room Air Intake & Output 02/05 1600 02/05 0800 / 0000 02/04 1600 02/04 0800 02/04 0000 Intake Total 630 600 290 Output Total 350 350 Balance 280 250 290 Intake, IV 600 600 200 Intake, Oral 30 0 90 Output, Urine 350 350 Patient 135 lb Weight Weight Estimated Measurement Method Physical Exam: Gen.: Sleepy but easily arousable and in obvious distress Skin: Warm and dry Cardiac: S1-S2 regular Pulmonary: Bilateral breath sounds were equal and decreased at bases Extremities: Bilateral lower extremities are warm without calf tenderness or significant edema. Gross motor and sensory were intact. Right hip surgical dressing was clean, dry, and intact. Assessment/Plan Assessment/Plan Assessment: 86-year-old female status post ORIF of right femoral fracture. Postoperatively patient is progressing as expected and her pain is under adequate control. Recommendations: Continue IV fluids and Jaffe catheter until the morning Strict I's and O's Advance diet as tolerated Follow-up morning laboratory studies and dose Coumadin for an INR between 2 and 3 Out of bed with physical therapy patient is weightbearing as tolerated Continue current pain regiment GI and DVT prophylaxis Bowel regiment Incentive spirometry 2 doses of prophylactic postoperative antibiotics
[2017-02-05 22:00] VITALS: BP 128/84
[2017-02-06 00:43] VITALS: BP 120/72
[2017-02-06 02:02] VITALS: BP 126/82
[2017-02-06 06:20] VITALS: BP 142/86
--- NOTE | 2017-02-06 07:15 | PN- Orthopedic ---
Subjective Subjective: Patient resting comfortably without any complaints at the present time. Objective Vital Signs and I&Os Vital Signs Date Time Temp Pulse Resp B/P B/P Pulse O2 O2 Flow FiO2 Mean Ox Delivery Rate 02/06 0620 97.6 86 20 142/86 94 Nasal 3.0L Cannula 02/06 0202 97.6 100 20 126/82 98 Nasal 3.0L Cannula 02/06 0043 97.9 100 20 120/72 97 Nasal 3.0L Cannula 02/06 0000 98 Nasal 3.0L Cannula 02/05 2200 97.7 83 18 128/84 95 Nasal 3.0L Cannula 02/05 1405 160/94 02/05 1405 98.2 93 20 94 02/05 1222 108 130/80 02/05 1128 Room Air 02/05 1102 Room Air Intake & Output 02/06 0800 02/06 0000 02/05 1600 02/05 0800 02/05 0000 02/04 1600 Intake Total 700 630 600 290 Output Total 150 700 350 350 Balance -150 0 280 250 290 Intake, Blood 325 Product Intake, IV 375 600 600 200 Intake, Oral 0 30 0 90 Output, Urine 150 700 350 350 Patient 135 lb Weight Weight Estimated Measurement Method Physical Exam: General: Sleepy but arousable, no acute distress Cardiac: irregular Pulm: CTA, normal respiratory effort, nasal cannula Extremities: Moves all extremties, distal sensation intact, skin warm and dry, bilateral calves soft and non-tender Surgical site: Right hip. Dressing dry and intact. Thigh compartment soft. Assessment/Plan Assessment/Plan This is a 86 year old female, POD 1, s/p orif R intertrocahteric femur fracture. PMH significant for afib, htn, hyperlipidemia, depression, hypothyroid. Recommendations: Discontinue IV fluids and Jaffe catheter this morning Strict I's and O's Advance diet as tolerated Follow-up morning laboratory studies and dose Coumadin today for an INR between 2 and 3 Out of bed with physical therapy, patient is weightbearing as tolerated Continue current pain regimen GI and DVT prophylaxis Bowel regimen Incentive spirometry Surgery to change dressing post op day 2
[2017-02-06 07:47] LABS: ABSOLUTE BASOPHIL COUNT 0 /CUMM (0.0-0.2); ABSOLUTE EOSINOPHIL COUNT 0 /CUMM (0.0-0.7); ABSOLUTE GRANULOCYTE CT 11.3 /CUMM (1.4-6.5); ABSOLUTE LYMPH COUNT 0.4 /CUMM (1.2-3.4); ABSOLUTE MONOCYTE COUNT 0.7 /CUMM (0.10-0.60); BASOPHIL % 0 % (0.0-2.0); EOSINOPHIL % 0 % (0-5); HEMATOCRIT 33.1 % (37-47); MEAN CORPUSCULAR HGB 29.9 PG (27.0-31.0); MEAN CORPUSCULAR VOLUME 90.6 FL (81.0-99.0); MEAN PLATELET VOLUME 9.3 FL (7.4-10.4); PLATELET COUNT 337 /CUMM (130-400); RBC DISTRIBUTION WIDTH 12.8 % (11.5-14.5); RED BLOOD CELL CT 3.65 /CUMM (4.20-5.40); WHITE BLOOD CELL COUNT 12.4 /CUMM (4.8-10.8)
--- NOTE | 2017-02-06 07:51 | PN- Housestaff ---
MICHELLE SALAS,MOJGAN 02/06/17 0751: Subjective Follow-up For: ORIF pod 1 Subjective: Saw pt at bedside this AM. She stated that she felt better. She is AOX2. Overall seems better today. She does complain of pain but she makes statements of " Put me out of my misery." "Just knock me out." " I don't want to be awake at all." I informed her that the goal was not to sedate her to the point of incoherence but for her to be awake and comfortable. She seemed to be on board. Review of Systems Constitutional: Reports: weakness. Denies: chills, fever. EENTM: Reports: no symptoms. Cardiovascular: Reports: no symptoms. Respiratory: Reports: no symptoms. Gastrointestinal: Denies: abdominal pain, diarrhea, distention. Genitourinary: Reports: no symptoms. Musculoskeletal: Reports: back pain, joint pain, joint swelling, muscle pain, muscle stiffness. Skin: Reports: no symptoms. Objective Last 24 Hrs of Vital Signs/I&O Vital Signs Date Time Temp Pulse Resp B/P B/P Pulse O2 O2 Flow FiO2 Mean Ox Delivery Rate 02/06 1037 Nasal 3.0L Cannula 02/06 0931 Room Air 02/06 0620 97.6 86 20 142/86 94 Nasal 3.0L Cannula 02/06 0202 97.6 100 20 126/82 98 Nasal 3.0L Cannula 02/06 0043 97.9 100 20 120/72 97 Nasal 3.0L Cannula 02/06 0000 98 Nasal 3.0L Cannula 02/05 2200 97.7 83 18 128/84 95 Nasal 3.0L Cannula Intake & Output 02/06 1600 02/06 0800 05 0000 Intake Total 600 700 Output Total 150 700 Balance 450 0 Intake, Blood 325 Product Intake, IV 600 375 Intake, Oral 0 Output, Urine 150 700 Physical Exam General Appearance: Alert, Oriented X3, Cooperative, No Acute Distress Skin: No Breakdown, No Significant Lesion HEENT: Atraumatic, PERRLA, EOMI, Mucous Membr. moist/pink Neck: Supple Cardiovascular: Regular Rate, Normal S1, Normal S2, No Murmurs Lungs: Normal Air Movement Abdomen: Soft, No Tenderness Neurological: AOX2. Extremities: R. Thigh wrapped in bandage. Clean and no blood. Last 24 Hrs of Lab/Garrick Results Last 24 Hrs of Labs/Mics: Laboratory Tests 02/06/17 1210: Urine Color DANYEL, Urine Clarity HAZY H, Urine pH 6.0, Ur Specific [place]old 1.025, Urine Protein 30 H, Urine Ketones NEG, Urine Nitrite NEG, Urine Bilirubin NEG, Urine Urobilinogen 1.0, Ur Leukocyte Esterase TRACE H, Ur Microscopic SEDIMENT EXAMINED, Urine RBC 25-50 H, Urine WBC > 75 H, Ur Epithelial Cells FEW, Urine Bacteria MANY H, Urine Hemoglobin LARGE H, Urine Glucose NEG 02/06/17 0618: Anion Gap 10, Estimated GFR > 60, BUN/Creatinine Ratio 22.0, PT 24.1 H, INR 2.31 H, CBC w Diff NO MAN DIFF REQ, RBC 3.65 L, MCV 90.6, MCH 29.9, RDW 12.8, MPV 9.3, Gran % 90.9 H, Lymphocytes % 3.4 L, Monocytes % 5.7, Eosinophils % 0, Basophils % 0 L, Absolute Granulocytes 11.3 H, Absolute Lymphocytes 0.4 L, Absolute Monocytes 0.7 H, Absolute Eosinophils 0, Absolute Basophils 0, PUBS MCHC 33.0 Assessment/Plan Assessment: This is a 86-year-old female with past medical history significant for atrial fibrillation on warfarin, hypertension, hyperlipidemia, chronic venous insufficiency, LE edema on Lasix, hemorrhoids, DJD, gout, OA, hypothyroidism, depression, constipation with CC unwitnessed fall. Patient couldn't provide any history 2/2 AO x 0. Hip xray- Intertrochanteric fracture of the right hip. Ct head- normal PLAN: Intertrochanteric fracture of right hip: ORIF POD 1. Minimal blood loss; no complications. Pt clinically improving. She is more alert and oriented and pain seems better controlled. Pt has previous hx of BRBPR in January 2017, at that time most likely 2/2 anticoagulant + hemorrhoids; however, cannot rule out minor diverticular bleed or ulceration etc. Will restart anticoagulation. Con't hydrate and dodson as pt has low urine output. * Maintain oxygen saturation above 92% * Fall precautions * Pain management * Gentle IV hydration In setting of low urine output and dark urine * Restart warfarin for goal 2-3 * Thank you ortho recs * Thank you cardiac recs * regular diet * PT * OT * Dispo recs Atrial fibrillation: Chronic and stable * EKG on admission showed atrial fibrillation, rate 102. * Patient is on PO Cardizem 240 mg extended release. * Start coumadin for goal 2-3 * Continue Cardizem Hypertension: Chronic and stable * Diltiazem CD 240mg PO Daily * Lisinopril 20mg PO BID; WILL RESTART BP PERMITTING * Metoprolol Succinate 25mg PO daily Constipation * Colace 100mg PO BID * Milk of Magnesia PRN Coronary Artery Disease- * Aspirin 81mg PO Daily Hypothyroidism- * Synthroid 100mcg PO Daily Depression- * Lexapro 5mg PO daily Gout- * Allopurinol 100mg PO Daily Chronic Lower extremity swelling- * Furosemide 20mg PO Daily--HOLD LASIX Diet- npo DVT PPx- ALPS Code Status - FULL CODE Problem List: 1. Warfarin-induced coagulopathy 2. Fracture, intertrochanteric, right femur Pain Ratin Pain Location: NONE Pain Goal: Pain 4 or less Pain Plan: CURRENT REG Tomorrow's Labs & Rationales: CBC BEP INR DVT/Prophylaxis: mechanical, pharmacological ABAD GALVAN 02/06/17 1103: Attending Review Statement Attending Statement Attending MD Statement: examined this patient, discuss w/resident/PA/SILK CONDITIONER, agreed w/resident/PA/SILK CONDITIONER, discussed with family, reviewed EMR data (avail), discussed with nursing, discussed with case mgmt, reviewed images, amended to note Attending Assessment/Plan: ASSESSMENT - Unwitnessed fall - Right intertrochanteric femur fracture s/p ORIF 02/05/17 - History of HTN, A. fib, hypothyroidism - Right hip pain - toxic metabolic encephalopathy - Constipation. PLAN admit to inpatient medical services, low threshold to transfer tele. advacne diet as tolerated, IVF, cardio consult, c/w home meds for rate control. Resume Coumadin. follow orthopedics pain control , bowel regimen. PT eval for STR. gi/dvt prophyalxis, skin and fall precautions.
--- NOTE | 2017-02-06 08:00 | Discharge Summary ---
Visit Information Visit Dates Admission Date: 02/04/17 Discharge Date: 02/09/2017 Hospital Course Course Attending Physician: YULIYA SYLVESTER MD Primary Care Physician: LUIS THOMAS MD Hospital Course: Ms. Barahona is an 86 year old female with history of hypertension, hyperlipidemia and atrial fibrillation on Coumadin. She also carries a history of osteoarthritis. This patient was recently admitted to [facility] for knee and shoulder pain. She subsequently went to [facility] for rehab.This time the patient had a unwitnessed fall in which she fell from a wheelchair onto the floor.She has been having he persistent confusion since the fall. She now complains of right hip pain and was discovered to have an intertrochanteric hip fracture. This patient had been living in an assisted living facility up until a short time ago.. She denies chest discomfort, shortness of breath, lightheadedness or palpitations. Functional Ability ADLs Needs Assist: dressing, eating, toileting, bathing. Ambulation: walker IADLs Independent: telephone. Needs Assist: shopping, housework, finances, food prep, transportation, medication admin. Initial imaging and exam as follows: On exam: Alert not oriented in no acute distress, cooperative, neck supple, JVD normal, no lymphadenopathy, mucosa dry, no dependent edema, no obvious skin rashes or inflammation or breakdowns CVS: S1-S2, irregular. RS: Clear to auscultate bilaterally. Abdomen: Soft, NT, ND, bowel sounds present. Bony tenderness on right hip, peripheral pulses perfusion normal. Labs: WBC 12.6, hemoglobin 13.4, hematocrit 40.7, BUN 23, creatinine 0.6, glucose 109, alkaline phosphatase 163, troponin less than 0.01, INR 1.7 EKG: A. fib X-ray pelvis, hip, CT head, chest x-ray 1. Intertrochanteric fracture of the right hip. 2. No intracranial hemorrhage. Age-related volume loss and microvascular ischemic changes. 3. Limited exam secondary to patient positioning. Pulmonary hypoinflation and bronchovascular crowding. Prominence of the cardiac and mediastinal silhouettes. This may be secondary to technique or it may represent cardiomegaly with associated prominence of the mediastinum. Consider correlation with a dedicated PA and lateral chest x-ray. The patient was treated in the hospital for the following problems: 1. Intertrochanteric fracture of the right hip status post Intramedullary rodding of the right femur 2. History of hypertension 3. History of atrial fibrillation 4. History of hyperlipidemia 5. Reactive Leukocytosis after the surgery Hospital course The patient had the intramedullary rodding of the right femur. Patient is status post day 3 after surgery. Dressing was changed on status posted to. DVT prophylaxis with Coumadin should be maintained with INR goal of 2-3. On discharge the INR was 2.18. She did not get coumadin on 02/09/17. No other changes were made to the patient's medication. She needs PT afterr the surgery Dressing was cahnged affter the surgery on 02/07/17 pt needs tramadol now, consider haldol if in distress She needs to follow Dr. Ramos in 2 weeks. Allergies: Coded Allergies: No Known Allergies (01/24/17) Significant Procedures: Surgery Date: 02/05/17 Name of Procedure: Intramedullary rodding of the right femur Pre-Operative Diagnosis: Right intertrochanteric hip fracture Post-Operative Diagnosis: Right intertrochanteric hip fracture Estimated Blood Loss: 50ml to 100ml Surgeon/Roller Inspector And Mender: lola ramos Anesthesia: laryngeal mask airway Operative/Procedure Note Note: The patient was brought to the operating room and given a general anesthetic while in her bed. She received 2 g of Kefzol antibiotics. She was then gently transferred to the fracture table and placed in longitudinal traction. Preoperative x-rays and fluoroscopy showed an anatomic reduction on the table of her intratrochanteric right hip fracture. The right hip was then prepped and draped in usual sterile fashion. We did do an appropriate timeout prior to procedure indicate the right hip was indeed the operative hip. Using a small incision about 3 cm in length above the greater trochanter and this was carried down through the fascia to the trochanter. Using a guidewire was placed down the femoral canal verified on AP and lateral fluoroscopic pictures. Appropriate initial opening reamer was then carried out. The implants placed was a 10 x 170 mm x 1 30 angle trochanteric nail using the gamma system. The appropriate 95 mm lag screw was placed. Distal locking screw was placed. Using a 5.0x35 mmscrew. Final x-rays were taken showing an anatomic reduction of the intratrochanteric hip fracture with the implant perfectly placed. Thorough irrigation was carried out of the wounds then were closed in layers dry sterile dressings were applied and she was sent back to recovery room in stable condition all complications and a dictation all needle and initially counts were correct thank you Dr. Ramos Pertinent Lab Results: Laboratory Tests 02/06/17 0618: Sodium Pending, Potassium Pending, Chloride Pending, Carbon Dioxide Pending, Anion Gap Pending, BUN Pending, Creatinine Pending, BUN/Creatinine Ratio Pending , PT Pending, INR Pending, CBC w Diff Pending, WBC Pending, RBC Pending, Hgb Pending, Hct Pending, MCV Pending, MCH Pending, RDW Pending, Plt Count Pending, MPV Pending, PUBS MCHC Pending Disposition Summary Disposition Principal Diagnosis: 1. Intertrochanteric fracture of the right hip status post Intramedullary rodding of the right femur Additional Diagnosis: 2. History of hypertension 3. History of atrial fibrillation 4. History of hyperlipidemia Discharge Disposition: SNF Discharge Instructions General Discharge Information Code Status: Full Code Patient's Diet: as tolerated Patient's Activity: As tolerated Follow-Up Instructions/Appts: Follow-up with Dr. Ramos/orthopedic surgeon in 1 week of discharge Continuing trending and dosing the Coumadin with the goal INR of 2-3 Recheck CBC and basic electrolyte panel in 1 week Medications at Discharge Discharge Medications: Continue taking these medications: Acetaminophen (Pain Reliever) 500 MG CAPSULE 1 Tablet ORAL EVERY SIX HOURS as needed for PAIN Comments: Last Taken: 02/08/17 Time: 9:00 PM Allopurinol (Allopurinol) 100 MG TABLET 1 Tablet ORAL DAILY Comments: Last Taken: 02/09/17 Time: 10:00 AM Aspirin (Ecotrin*) 81 MG TABLET.DR 1 Tablet ORAL DAILY Comments: NOT GIVEN IN HOSPTIAL Docusate Sodium (Colace) 100 MG CAPSULE 1 Capsule ORAL TWICE DAILY Comments: Last Taken: 02/08/17 Time: 9:00 PM Diltiazem HCl (Diltiazem 24HR ER) 240 MG CAP.ER.24H 1 Capsule ORAL DAILY Comments: Last Taken: 02/09/17 Time: 10:00 AM Furosemide (Furosemide) 20 MG TABLET 1 Tablet ORAL DAILY Comments: NOT GIVEN IN HOSPITAL Potassium Chloride (Klor-Con M20) 20 MEQ TAB.ER.PRT 1 Tablet ORAL DAILY Comments: NOT GIVEN IN HOSPITAL Levothyroxine Sodium (Levothyroxine Sodium) 100 MCG TABLET 1 Tablet ORAL DAILY BEFORE BREAKFAST Comments: Last Taken: 02/09/17 Time: 06:00 AM Escitalopram Oxalate (Lexapro) 5 MG TABLET 1 Tablet ORAL DAILY Comments: Last Taken: 02/09/17 Time: 10:00 AM Lisinopril (Lisinopril) 20 MG TABLET 1 Tablet ORAL TWICE DAILY Comments: Last Taken: 02/09/17 Time: 10:00 AM Metoprolol Succinate (Metoprolol Succinate) 25 MG TAB 1 Tablet ORAL DAILY Comments: Last Taken: 02/09/17 Time: 10:00 AM Tramadol HCl (Tramadol HCl) 50 MG TABLET 1 Tablet ORAL THREE TIMES A DAY NEEDED Comments: Last Taken: 02/09/17 Time: 11:00 AM Warfarin Sodium (Coumadin) 2.5 MG TABLET 1 Tablet ORAL DAILY Instructions: mainatain INR 2-3 Comments: Last Taken: 02/08/17 Time: 5:00 PM Sennosides/Docusate Sodium (Senokot-S Tablet) 8.6 MG-50 MG TABLET 1 Tablet ORAL TWICE DAILY Qty = 30 Comments: Last Taken: 02/08/17 Time: 9:00 AM Polyethylene Glycol 3350 (Miralax) 17 GRAM POWD.PACK 1 Packet ORAL DAILY Qty = 30 Instructions: dissolve in water Comments: Last Taken: 02/08/17 Time: 10:00 AM Copies To: LUIS SALAS,LOLA Pulido; WILLIAM SALAS,LUIS Sapp
--- NOTE | 2017-02-06 08:07 | Patient Discharge Instructions ---
Discharge Instructions General Discharge Information You were seen/treated for: right hip fx Special Instructions: please f/u with your pcp n1 week of discharge please f/u with orthopedics in 1 week of discharge Acute Coronary Syndrome Inclusion Criteria At DC or during hospital stay patient has or had the following: ACS DIAGNOSIS No Discharge Core Measures Meds if any: Prescribed or Continued at Discharge Meds if any: NOT Prescribed or Continued at Discharge Congestive Heart Failure Inclusion Criteria At DC or during hospital stay patient has or had the following: CHF DIAGNOSIS No Discharge Core Measures Meds if any: Prescribed or Continued at Discharge Meds if any: NOT Prescribed or Continued at Discharge Cerebrovascular accident Inclusion Criteria At DC or during hospital stay patient has or had the following: CVA/TIA Diagnosis No Discharge Core Measures Meds if any: Prescribed or Continued at Discharge Meds if any: NOT Prescribed or Continued at Discharge Venous thromboembolism Inclusion Criteria VTE Diagnosis No VTE Type NONE VTE Confirmed by (Test) NONE Discharge Core Measures - Per Current guidelines, there needs to be overlap - treatment for the first 5 days of Warfarin therapy. - If discharged on Warfarin prior to 5 days of - overlap therapy, the patient will need to be - assessed for post discharge needs including - *Post discharge parental anticoagulation - *Warfarin and/or parental anticoagulation education - *Follow up date to check INR post discharge At least 5 days overlap therapy as Inpatient No Meds if any: Prescribed or Continued at Discharge Note: Overlap Therapy is Warfarin and Anticoagulant Meds if any: NOT Prescribed or Continued at Discharge
[2017-02-06 08:23] LABS: PT 24.1 SEC (9.4-12.5)
[2017-02-06 08:55] LABS: GRANULOCYTE % 90.9 % (42.2-75.2)
--- NOTE | 2017-02-06 09:03 | NUR ---
0510 URINE OUTPUT 150ML PRISON TEACHER-THIS REPORTED TO DR REYES. NO NEW ORDERS AT THIS TIME. WILL CONTINUE TO MONITOR.
--- NOTE | 2017-02-06 09:11 | RADIOLOGY REPORT ---
EXAMINATION: XR HIP, RIGHT FL C-ARM ASSISTANCE CLINICAL INFORMATION: Right hip ORIF. COMPARISON: Radiographs of the pelvis and right hip done on 02/04/2017. TECHNIQUE: C-arm fluoroscopy assistance was provided at the time of right hip ORIF. 6 spot radiographs were obtained at the time of the procedure. FINDINGS: Postsurgical changes of ORIF are noted at the right hip with intact hardware and satisfactory alignment. Full procedural detail will be dictated by Dr. Oh. FLUOROSCOPY TIME: 37.8 seconds IMPRESSION: C-arm fluoroscopy assistance was provided at the time of right hip ORIF. Postsurgical changes of right hip ORIF are noted with intact hardware and satisfactory alignment.
--- NOTE | 2017-02-06 16:45 | NUR ---
NURSING NOTE: NEW HEMATURIA NOTED IN JASSO BAG URINE OUTPUT. FRUIT OR NUT PICKER 204 NOTIFIED.
[2017-02-06 22:57] VITALS: BP 128/86
[2017-02-07 06:35] VITALS: BP 138/84
--- NOTE | 2017-02-07 07:56 | PN- Housestaff ---
See Addendum Subjective Follow-up For: hip fracture sp orif Subjective: pt seen today, refused to work with PT due to pain. she reports 5/10 pain at rest and 7/10 pain on ambulation, but she would scream (i can hear her from across the hallway) when she was moved she complains of right knee and hip pain and would cringe prior to palpation in anticipation of pain. she is alert today and was coherent she had good urine output therefore ivf and dodson discontinued inr today 2.13, will resume coumadin. Review of Systems Constitutional: Reports: see HPI. Objective Last 24 Hrs of Vital Signs/I&O Vital Signs Date Time Temp Pulse Resp B/P B/P Pulse O2 O2 Flow FiO2 Mean Ox Delivery Rate 02/07 0836 86 136/80 02/07 0800 94 Nasal 2.0L Cannula 02/07 0635 98.1 89 20 138/84 95 05/ 0000 Nasal 1.0L Cannula 02/06 2257 97.4 97 18 128/86 94 Nasal Cannula 02/06 1600 Nasal 1.0L Cannula 02/06 1419 65.0 98 20 92 Nasal 1.0L Cannula Intake & Output 02/07 1600 / 0800 05/ 0000 Intake Total 800 705 Output Total 1375 401 Balance -575 304 Intake, IV 800 225 Intake, Oral 480 Output, Stool 1 Output, Urine 1375 400 Physical Exam General Appearance: Alert, Oriented X3, Cooperative Cardiovascular: irregular rate and rhythm Lungs: Clear to Auscultation, Normal Air Movement Abdomen: guarding with right lower quadrant palpation Neurological: Normal Speech Current Medications: Current Medications Sig/Tatyana Start time Last Medication Dose Route Stop Time Status Admin Acetaminophen 1,000 MG Q6P PRN 02/04 2115 AC 02/06 IV 1040 Allopurinol 100 MG DAILY 02/05 1000 AC / PO 0836 Cefazolin Sodium 1,000 MG Q8H 02/06 0400 DC 05/ IV 02/06 1201 1141 Dextrose/Sodium 1,000 ML Q13H 02/06 0915 DC 05 Chloride IV 0749 Diazepam 2 MG ONCE ONE 02/06 1145 DC 05/ PO 02/06 1146 1140 Diltiazem HCl 240 MG DAILY 02/05 1000 AC 05/ PO 0836 Docusate Sodium 100 MG BID 02/04 2200 AC 02/07 PO 0836 Escitalopram Oxalate 5 MG DAILY 02/05 1000 AC 02/07 PO 0836 Haloperidol 0.5 MG .STK-MED ONE 02/06 1612 DC PO 02/06 1613 Haloperidol 0.5 MG FOUR TIMES A DAY PRN 02/04 2300 AC 02/06 PO 2122 Levothyroxine Sodium 0.1 MG DAILY AC 02/05 0700 AC 02/07 PO 0631 Lidocaine 1 PAT Q24H 02/04 2115 AC 02/06 EXT 2122 Metoprolol Succinate 25 MG DAILY 02/05 1000 AC 02/07 PO 0836 Morphine Sulfate 2 MG Q4P PRN 02/04 2115 AC 02/07 IV 1013 Patient Medication 1 ED .STK-MED ONE 02/06 1417 DC Teaching ED 02/06 1418 Polyethylene Glycol 17 GM DAILY 02/05 1000 AC 02/07 PO 0835 Senna/Docusate Sodium 1 TAB BID 02/04 2200 AC 02/07 PO 0836 Tramadol HCl 50 MG Q6P PRN 02/05 2000 AC 02/07 PO 0744 Warfarin Sodium 2.5 MG COUMADIN 1700 ONE 02/07 1700 AC PO 02/07 1701 Assessment/Plan Assessment: This is a 86-year-old female with past medical history significant for atrial fibrillation on warfarin, hypertension, hyperlipidemia, chronic venous insufficiency, LE edema on Lasix, hemorrhoids, DJD, gout, OA, hypothyroidism, depression, constipation with CC unwitnessed fall. Patient couldn't provide any history 2/2 AO x 0. Hip xray- Intertrochanteric fracture of the right hip. Ct head- normal PLAN: Intertrochanteric fracture of right hip: ORIF POD 2. Minimal blood loss; no complications. Pt clinically improving. She is more alert and oriented and pain seems better controlled. Pt has previous hx of BRBPR in January 2017, at that time most likely 2/2 anticoagulant + hemorrhoids; however, cannot rule out minor diverticular bleed or ulceration etc. Will restart anticoagulation. Con't hydrate and dodson as pt has low urine output. * Maintain oxygen saturation above 92% * Fall precautions * Pain management * IVF and dodson discontinued * Resume warfarin for goal 2-3 * Thank you ortho recs * Thank you cardiac recs * regular diet * PT * OT * Dispo recs Atrial fibrillation: Chronic and stable * EKG on admission showed atrial fibrillation, rate 102. * Patient is on PO Cardizem 240 mg extended release. * Start coumadin for goal 2-3 * Continue Cardizem Hypertension: Chronic and stable * Diltiazem CD 240mg PO Daily * Lisinopril 20mg PO BID; WILL RESTART BP PERMITTING * Metoprolol Succinate 25mg PO daily Constipation * Colace 100mg PO BID * Milk of Magnesia PRN Coronary Artery Disease- * Aspirin 81mg PO Daily Hypothyroidism- * Synthroid 100mcg PO Daily Depression- * Lexapro 5mg PO daily Gout- * Allopurinol 100mg PO Daily Chronic Lower extremity swelling * Furosemide 20mg PO Daily--HOLD LASIX Diet- npo DVT PPx- ALPS Code Status - FULL CODE Problem List: 1. Fracture, intertrochanteric, right femur Pain Ratin Pain Location: right knee and hip left shoulder Pain Goal: Pain 7 or less Pain Plan: morphine lidocaine patch Tomorrow's Labs & Rationales: inr for coumadin dose cbc for leukocytosis DVT/Prophylaxis: mechanical, pharmacological
[2017-02-07 08:35] LABS: PT 22.2 SEC (9.4-12.5)
[2017-02-07 08:54] LABS: ABSOLUTE BASOPHIL COUNT 0 /CUMM (0.0-0.2); ABSOLUTE EOSINOPHIL COUNT 0 /CUMM (0.0-0.7); ABSOLUTE GRANULOCYTE CT 11.4 /CUMM (1.4-6.5); ABSOLUTE LYMPH COUNT 0.8 /CUMM (1.2-3.4); ABSOLUTE MONOCYTE COUNT 1.2 /CUMM (0.10-0.60); BASOPHIL % 0 % (0.0-2.0); EOSINOPHIL % 0 % (0-5); GRANULOCYTE % 85.3 % (42.2-75.2); HEMATOCRIT 29.4 % (37-47); MEAN CORPUSCULAR HGB 29.6 PG (27.0-31.0); MEAN CORPUSCULAR HGB CONC 33.1 G/DL (33.0-37.0); MEAN CORPUSCULAR VOLUME 89.4 FL (81.0-99.0); MEAN PLATELET VOLUME 9.1 FL (7.4-10.4); PLATELET COUNT 373 /CUMM (130-400); RBC DISTRIBUTION WIDTH 12.7 % (11.5-14.5); RED BLOOD CELL CT 3.29 /CUMM (4.20-5.40); WHITE BLOOD CELL COUNT 13.3 /CUMM (4.8-10.8)
--- NOTE | 2017-02-07 09:32 | PN- Orthopedic ---
Surgical Brief Attending Note Brief Attending Note: Patient seen this morning. She is postop day #2 status post intramedullary fixation of a right intertrochanteric hip fracture. She is resting comfortably in her bed. No complaints today. HEENT seems to be well controlled. The right lower extremity has minimal pain with motion of the hip joint. She does have some swelling about the right knee. The extremity is neurovascularly intact. Assessment status post fixation of a right intertrochanteric hip fracture. Plan: The patient will continue weightbearing as tolerated with physical therapy and we will manage her pain and follow-up with her labs. She is to continue on anticoagulation.
--- NOTE | 2017-02-07 10:31 | NUR ---
PT attempted x1 to perform treatment on patient however pt adamantly refusing. Nursing in room at time of attempt; after discussing with nursing, nursing will try and order additional pain medication for pain and physical therapy will attempt again today after pain med administration.
[2017-02-07 14:50] VITALS: BP 118/70
[2017-02-07 23:53] VITALS: BP 142/80
[2017-02-08 06:52] VITALS: BP 140/74
--- NOTE | 2017-02-08 08:13 | PN- Orthopedic ---
Subjective Subjective: Patient complaining of pain this am when being moved for bedpan placement. Is compliant with nursing staff but appears to be somewhat confused. Objective Vital Signs and I&Os Vital Signs Date Time Temp Pulse Resp B/P B/P Pulse O2 O2 Flow FiO2 Mean Ox Delivery Rate 02/08 0652 97.6 97 20 140/74 95 / 0000 93 Nasal 1.0L Cannula 02/07 2353 99.0 86 18 142/80 96 Room Air 02/07 1600 97 Nasal 2.0L Cannula 02/07 1450 97.8 95 20 118/70 94 Nasal 1.5L Cannula 02/07 0836 86 136/80 Intake & Output 02/08 1600 02/08 0800 02/08 0000 02/07 1600 02/07 0800 02/07 0000 Intake Total 008 063 4659 800 705 Output Total 558 581 1608 401 Balance -390 120 700 -575 304 Intake, IV 300 800 225 Intake, Oral 240 120 800 480 Output, Stool 1 Output, Urine 918 632 5352 400 Physical Exam: General: Awake, acknowleging pain but following commands Cardiac: Irregularly irregular Pulm: CTA Extremties: Moving all extremities, no resting internal or external rotation or shortening of right leg, dressing dry and intact, thigh compartment soft Assessment/Plan Assessment/Plan This is a 86 year old female, POD 3 s/p ORIF right intertroch fracture. -Continue anticoagulation -Continue current pain regimen, pt needs tramadol now, consider haldol if in distress -Can weight bear as tolerated -Stable from surgical standpoint
[2017-02-08 09:19] LABS: ABSOLUTE BASOPHIL COUNT 0 /CUMM (0.0-0.2); ABSOLUTE EOSINOPHIL COUNT 0 /CUMM (0.0-0.7); ABSOLUTE GRANULOCYTE CT 11.6 /CUMM (1.4-6.5); ABSOLUTE MONOCYTE COUNT 1.1 /CUMM (0.10-0.60); BASOPHIL % 0 % (0.0-2.0); EOSINOPHIL % 0 % (0-5); GRANULOCYTE % 84.8 % (42.2-75.2); HEMATOCRIT 31.7 % (37-47); MEAN CORPUSCULAR HGB 29.9 PG (27.0-31.0); MEAN CORPUSCULAR VOLUME 90.5 FL (81.0-99.0); MEAN PLATELET VOLUME 8.5 FL (7.4-10.4); PLATELET COUNT 440 /CUMM (130-400); RBC DISTRIBUTION WIDTH 12.8 % (11.5-14.5); WHITE BLOOD CELL COUNT 13.7 /CUMM (4.8-10.8)
--- NOTE | 2017-02-08 12:51 | PN- Housestaff ---
See Addendum Subjective Follow-up For: sp orif day 3 Subjective: Saw patient at bedside this a.m. She stated that she continued to have 10 out of 10 excruciating pain in her right hip, right knee. Metoprolol. Make sure that she received all her pain medication adequately and if breakthrough as necessary. Certainly provided. Patient seems to be more alert and oriented, however she still has moments of confusion. Review of Systems Constitutional: Denies: chills, malaise. EENTM: Reports: no symptoms. Cardiovascular: Reports: no symptoms. Respiratory: Reports: no symptoms. Gastrointestinal: Reports: no symptoms. Genitourinary: Reports: no symptoms. Musculoskeletal: Reports: back pain, joint pain, muscle pain, muscle stiffness. Skin: Reports: no symptoms. Objective Last 24 Hrs of Vital Signs/I&O Vital Signs Date Time Temp Pulse Resp B/P B/P Pulse O2 O2 Flow FiO2 Mean Ox Delivery Rate 02/08 0917 116 160/84 02/08 0652 97.6 97 20 140/74 95 / 0000 93 Nasal 1.0L Cannula 02/07 2353 99.0 86 18 142/80 96 Room Air 02/07 1600 97 Nasal 2.0L Cannula 02/07 1450 97.8 95 20 118/70 94 Nasal 1.5L Cannula Intake & Output 02/08 1600 02/08 0800 02/08 0000 Intake Total 240 120 Output Total 630 Balance -390 120 Intake, Oral 240 120 Output, Urine 630 Physical Exam General Appearance: Alert, Cooperative, Mild Distress Skin: No Significant Lesion HEENT: Atraumatic, PERRLA, EOMI Neck: Supple Cardiovascular: irregularly irregular Lungs: Normal Air Movement Abdomen: Soft, No Tenderness Current Medications: Current Medications Sig/Tatyana Start time Last Medication Dose Route Stop Time Status Admin Acetaminophen 1,000 MG Q6P PRN 02/04 2115 AC 02/08 IV 0915 Allopurinol 100 MG DAILY 02/05 1000 AC 02/08 PO 0917 Diltiazem HCl 240 MG DAILY 02/05 1000 AC 02/08 PO 0917 Docusate Sodium 100 MG BID 02/04 2200 AC 02/08 PO 0917 Escitalopram Oxalate 5 MG DAILY 02/05 1000 AC 02/08 PO 0917 Haloperidol 0.5 MG .STK-MED ONE 02/07 1701 DC PO 02/07 1702 Haloperidol 0.5 MG FOUR TIMES A DAY PRN 02/04 2300 AC 02/08 PO 0222 Levothyroxine Sodium 0.1 MG DAILY AC 02/05 0700 AC 02/08 PO 0626 Lidocaine 1 PAT Q24H 02/04 2115 AC 02/07 EXT 2110 Metoprolol Succinate 25 MG DAILY 02/05 1000 AC 02/08 PO 0917 Morphine Sulfate 1 MG Q6-PRN PRN 02/07 1245 AC 02/08 IV 1214 Polyethylene Glycol 17 GM DAILY 02/05 1000 AC 02/08 PO 0916 Senna/Docusate Sodium 1 TAB BID 02/04 2200 AC 02/08 PO 0917 Tramadol HCl 50 MG Q6P PRN 02/05 2000 AC 02/08 PO 0827 Warfarin Sodium 2.5 MG COUMADIN 1700 ONE 02/07 1700 DC 02/07 PO 02/07 1701 1844 Last 24 Hrs of Lab/Garrick Results Last 24 Hrs of Labs/Mics: Laboratory Tests 02/08/17 0610: PT 18.0 H, INR 1.72 H, CBC w Diff NO MAN DIFF REQ, RBC 3.50 L, MCV 90.5, MCH 29.9, RDW 12.8, MPV 8.5, Gran % 84.8 H, Lymphocytes % 7.5 L, Monocytes % 7.7, Eosinophils % 0, Basophils % 0 L, Absolute Granulocytes 11.6 H, Absolute Lymphocytes 1.0 L, Absolute Monocytes 1.1 H, Absolute Eosinophils 0, Absolute Basophils 0, PUBS MCHC 33.0 Assessment/Plan Assessment: This is a 86-year-old female with past medical history significant for atrial fibrillation on warfarin, hypertension, hyperlipidemia, chronic venous insufficiency, LE edema on Lasix, hemorrhoids, DJD, gout, OA, hypothyroidism, depression, constipation with CC unwitnessed fall. Patient couldn't provide any history 2/2 AO x 0. Hip xray- Intertrochanteric fracture of the right hip. Ct head- normal PLAN: Intertrochanteric fracture of right hip: ORIF POD 3. Minimal blood loss; no complications. Pt clinically improving. She is more alert and oriented and pain seems better controlled. Pt has previous hx of BRBPR in January 2017, at that time most likely 2/2 anticoagulant + hemorrhoids; however, cannot rule out minor diverticular bleed or ulceration etc. Con't anticoagulation. * Maintain oxygen saturation above 92% * Fall precautions * Pain management morphine and tramadol * IVF and dodson discontinued * Resume warfarin for goal 2-3 * Thank you ortho recs * Thank you cardiac recs * regular diet * PT * OT * Dispo recs Atrial fibrillation: Chronic and stable * EKG on admission showed atrial fibrillation, rate 102. * Patient is on PO Cardizem 240 mg extended release. * Start coumadin for goal 2-3 * Continue Cardizem Hypertension: Chronic and stable * Diltiazem CD 240mg PO Daily * Lisinopril 20mg PO BID; WILL RESTART BP PERMITTING * Metoprolol Succinate 25mg PO daily Constipation * Colace 100mg PO BID * Milk of Magnesia PRN Coronary Artery Disease- * Aspirin 81mg PO Daily Hypothyroidism- * Synthroid 100mcg PO Daily Depression- * Lexapro 5mg PO daily Gout- * Allopurinol 100mg PO Daily Chronic Lower extremity swelling * Furosemide 20mg PO Daily--HOLD LASIX Diet- npo DVT PPx- ALPS Code Status - FULL CODE Problem List: 1. Warfarin-induced coagulopathy 2. Acute right hip pain 3. Fracture, intertrochanteric, right femur Pain Ratin Pain Location: none Pain Goal: Remain pain free Pain Plan: none Tomorrow's Labs & Rationales: cbc bep inr DVT/Prophylaxis: mechanical, pharmacological
[2017-02-08 14:32] VITALS: BP 141/83
[2017-02-08 22:25] VITALS: BP 134/84
[2017-02-09 06:36] VITALS: BP 132/86
[2017-02-09 10:56] LABS: PT 22.7 SEC (9.4-12.5)
--- NOTE | 2017-02-09 13:31 | PN- Housestaff ---
MICHELLE ASLAS,MOJGAN 02/09/17 1330: Subjective Follow-up For: ORIF Subjective: Pt denies any complaints. Was getting mobilized with PT when I saw her. No acute overnight events. Review of Systems Constitutional: Reports: no symptoms. Cardiovascular: Denies: chest pain, palpitations. Respiratory: Reports: no symptoms. Gastrointestinal: Denies: abdominal pain, diarrhea, melena, nausea, vomiting. Genitourinary: Reports: no symptoms. Musculoskeletal: Reports: joint pain, joint swelling, muscle pain, muscle stiffness. Objective Last 24 Hrs of Vital Signs/I&O Vital Signs Date Time Temp Pulse Resp B/P B/P Pulse O2 O2 Flow FiO2 Mean Ox Delivery Rate 02/09 1335 98.1 96 20 138/84 02/09 1005 96 138/84 02/09 1004 96 138/84 02/09 0636 98.1 99 20 132/86 93 / 0000 Nasal 1.0L Cannula 02/08 2225 98.5 83 20 134/84 93 Room Air 02/08 1600 Nasal 1.0L Cannula 02/08 1432 97.9 108 20 141/83 98 Nasal 1.0L Cannula Intake & Output 02/09 1600 08 0800 02/09 0000 Intake Total 480 Output Total Balance 480 Intake, Oral 480 Number 2 2 Bowel Movements Physical Exam General Appearance: Alert, Oriented X3, Cooperative, No Acute Distress HEENT: Atraumatic, PERRLA, EOMI Neck: Supple Cardiovascular: Regular Rate, Normal S1, Normal S2 Lungs: Clear to Auscultation Abdomen: Soft, No Tenderness Extremities: tenderness to palpation at r. hip. But was mobilizable Current Medications: Current Medications Sig/Tatyana Start time Last Medication Dose Route Stop Time Status Admin Acetaminophen 1,000 MG Q6P PRN 02/04 2115 AC 02/08 IV 205 Allopurinol 100 MG DAILY 02/05 1000 AC 02/09 PO 1002 Diltiazem HCl 240 MG DAILY 02/05 1000 AC 02/09 PO 1002 Docusate Sodium 100 MG BID 02/04 2200 AC 02/08 PO 205 Escitalopram Oxalate 5 MG DAILY 02/05 1000 AC 02/09 PO 1002 Haloperidol 0.5 MG .STK-MED ONE 02/09 021 DC PO 02/09 021 Haloperidol 0.5 MG FOUR TIMES A DAY PRN 02/04 2300 AC 02/09 PO 0210 Levothyroxine Sodium 0.1 MG DAILY AC 02/05 0700 AC 02/09 PO 0530 Lidocaine 1 PAT Q24H 02/04 2115 02/08 EXT 205 Lisinopril 20 MG BID 02/09 1000 AC 02/09 PO 1005 Metoprolol Succinate 25 MG DAILY 02/05 1000 AC 02/09 PO 1004 Morphine Sulfate 1 MG Q6-PRN PRN 02/07 1245 02/08 IV 1214 Patient Medication 1 ED .STK-MED ONE 02/09 1404 [facility] ED 02/09 1405 Patient Medication 1 UNIT ONE NR 02/09 0845 02/09 [facility] ED 02/09 1445 1004 Polyethylene Glycol 17 GM DAILY 02/05 1000 AC 02/08 PO 0916 Senna/Docusate Sodium 1 TAB BID 02/04 2200 AC 02/08 PO 2052 Tramadol HCl 50 MG Q6P PRN 02/05 2000 AC 02/09 PO 1044 Warfarin Sodium 2.5 MG COUMADIN 1700 ONE 02/08 1700 VA 02/08 PO 02/08 1701 1641 Last 24 Hrs of Lab/Garrick Results Last 24 Hrs of Labs/Mics: Laboratory Tests 02/09/17 0932: PT 22.7 H, INR 2.18 H 02/09/17 0610: Anion Gap 8, Estimated GFR > 60, BUN/Creatinine Ratio 26.0 H Assessment/Plan Assessment: This is a 86-year-old female with past medical history significant for atrial fibrillation on warfarin, hypertension, hyperlipidemia, chronic venous insufficiency, LE edema on Lasix, hemorrhoids, DJD, gout, OA, hypothyroidism, depression, constipation with CC unwitnessed fall. Patient couldn't provide any history 2/ AO x 0. Hip xray- Intertrochanteric fracture of the right hip. Ct head- normal PLAN: Intertrochanteric fracture of right hip: ORIF POD 4. Minimal blood loss; no complications. Pt clinically improving. She is more alert and oriented and pain seems better controlled. Pt has previous hx of BRBPR in January 2017, at that time most likely 2/2 anticoagulant + hemorrhoids; however, cannot rule out minor diverticular bleed or ulceration etc. Con't anticoagulation for INR 2-3 * Maintain oxygen saturation above 92% * Fall precautions * Pain management tramadol * IVF and dodson discontinued * Warfarin for goal 2-3 * Thank you ortho recs * Thank you cardiac recs * regular diet * PT * OT * Dispo recs Atrial fibrillation: Chronic and stable * EKG on admission showed atrial fibrillation, rate 102. * Patient is on PO Cardizem 240 mg extended release. * Coumadin for INR goal 2-3 * Continue Cardizem Hypertension: Chronic and stable * Diltiazem CD 240mg PO Daily * Lisinopril 20mg PO BID * Metoprolol Succinate 25mg PO daily Constipation * Colace 100mg PO BID * Milk of Magnesia PRN Coronary Artery Disease- * Aspirin 81mg PO Daily Hypothyroidism- * Synthroid 100mcg PO Daily Depression- * Lexapro 5mg PO daily Gout- * Allopurinol 100mg PO Daily Chronic Lower extremity swelling * Furosemide 20mg PO Daily--HOLD LASIX Diet- npo DVT PPx- ALPS Code Status - FULL CODE Problem List: 1. Acute right hip pain 2. Fracture, intertrochanteric, right femur Pain Ratin Pain Location: nONE Pain Goal: Remain pain free Pain Plan: Current reg Tomorrow's Labs & Rationales: none DVT/Prophylaxis: mechanical, pharmacological Discharge Plan Discharge Disposition: [facility]/[place] [facility]ALV[facility] 02/09/17 1335: Attending MD Review Statement Attending Statement Attending MD Statement: examined this patient, discuss w/resident/PA/CATALOGUE COMPILER, agreed w/resident/PA/CATALOGUE COMPILER, discussed with family, reviewed EMR data (avail), discussed with nursing, discussed with case mgmt, reviewed images, amended to note Attending Assessment/Plan: 86F PMH atrial fibrillation on warfarin, HTN, HLD, chronic venous insufficiency, chronic LE edema on Lasix, hemorrhoids, DJD, gout, OA, hypothyroidism, depression, constipation admitted for unwitnessed fall and intertrochanteric fracture of right hip s/p repair on 02/05. 1. Fall, initial event 2. Right intertrochanteric fracture of hip 3. Severe right leg pain 4. Alzheimer's dementia 5. Chronic atrial fibrillation 6. Chronic bilateral lower extremity edema Plan - Continue on general medicine - Continue home medications - Continue Coumadin - Follow orthopedic recommendations - Follow PT recommendations - Discharge to [facility]/facility.
[2017-02-09 13:35] VITALS: BP 138/84
[2017-02-09 14:19] VITALS: BP 130/85
--- NOTE | 2017-02-10 01:52 | NUR ---
1600 ALERT TO PERSON AND TIME. VITEL SIGNS STABLE. MEDICATION GIVEN FOR PAIN. WILL CONTINUE TO MONITOR 1800 IV REMOVED. VERBALIZED UNDERSTANDING OF PLAN OF CARE
== END 2017-02-09 18:45 | DRG 480 ==
LOC: ERH 16:54 → ERHI 18:38 → 2NB 18:38 → ENRESERV 20:09 → 2NB 21:00 → ENPENDDIS 02-09 14:17 → 2NB 02-09 18:45
PROVIDERS: Emergency Medicine; Internal Medicine Cardiovascular Disease; Radiology Diagnostic Radiology; Student in an Organized Health Care Education/Training Program; ADMIT Internal Medicine
PROC: 0QS606Z Reposition Right Upper Femur with Intramedullary Internal Fixation Device, Open Approach (ICD-10-PCS; principal; 2017-02-05)
DX: S72.141A Displaced intertrochanteric fracture of right femur, initial encounter for closed fracture (principal); G92 Toxic encephalopathy; I48.2 Chronic atrial fibrillation; G30.9 Alzheimer's disease, unspecified; F02.80 Dementia in other diseases classified elsewhere, unspecified severity, without behavioral disturbance, psychotic disturbance, mood disturbance, and anxiety; Z79.01 Long term (current) use of anticoagulants; I10 Essential (primary) hypertension; E78.5 Hyperlipidemia, unspecified; I87.2 Venous insufficiency (chronic) (peripheral); E03.9 Hypothyroidism, unspecified; W05.0XXA Fall from non-moving wheelchair, initial encounter; Y92.129 Unspecified place in nursing home as the place of occurrence of the external cause; M10.9 Gout, unspecified; F32.9 Major depressive disorder, single episode, unspecified; I25.10 Atherosclerotic heart disease of native coronary artery without angina pectoris; K59.00 Constipation, unspecified
CPT/HCPCS: 2NBP; 36415; 72170; 73502-RT; 81001; 82436; 87086; 93005; 93010; 96374; 96375; 97110-GO; 97116-GO; 97161-GP; 97530-GO; J0131; J0690; J2405; J3360; J7042